=== PATIENT | male | born 1955 | race Hispanic/Latino ===

== ENCOUNTER 2018-10-07 13:27 | Outpatient (CLI) | payer MEDICARE ==
[2018-10-07 14:05] LABS: Hematocrit 31.6 % (35.5-45.6); Hemoglobin 10.4 gm/dl (11.8-15.2); Mean Corpuscular HGB Conc 33 % (32-34); Mean Corpuscular Volume 100 fl (84-94); Platelet Count 144 K/mm3 (140-440); Red Blood Count 3.15 M/mm3 (3.65-5.03)
[2018-10-07 14:38] LABS: Albumin 3.6 g/dL (3.9-5); Calcium 10.4 mg/dL (8.4-10.2)
== END 2018-10-07 13:28 | disposition home or self-care (01) ==
LOC: LAB 13:27
PROVIDERS: ATTEND Internal Medicine
DX: N18.5 Chronic kidney disease, stage 5 (principal); R53.83 Other fatigue
CPT/HCPCS: 36415; 80053; 83970; 84100; 84443; 85027

== ENCOUNTER 2018-12-30 18:03 | Outpatient (CLI) | payer MEDICARE ==
[2018-12-30 18:47] LABS: Basophils # (Auto) 0.1 K/mm3 (0.0-0.1); Basophils % (Auto) 1.5 % (0.0-1.8); Eosinophils # (Auto) 0.3 K/mm3 (0.0-0.4); Eosinophils % (Auto) 3.3 % (0.0-4.3); Hematocrit 30.2 % (35.5-45.6); Hemoglobin 10.5 gm/dl (11.8-15.2); Lymphocytes # (Auto) 2.5 K/mm3 (1.2-5.4); Lymphocytes % (Auto) 30.8 % (13.4-35.0); Mean Corpuscular HGB Conc 35 % (32-34); Mean Corpuscular Volume 97 fl (84-94); Monocytes # (Auto) 0.5 K/mm3 (0.0-0.8); Monocytes % (Auto) 5.9 % (0.0-7.3); Platelet Count 142 K/mm3 (140-440); Red Blood Count 3.13 M/mm3 (3.65-5.03); Red Cell Distribution Width 15.1 % (13.2-15.2)
[2018-12-30 19:05] LABS: Albumin 3.5 g/dL (3.9-5); Calcium 10.5 mg/dL (8.4-10.2)
[2018-12-30 19:08] LABS: Creatinine,Urine 69.5 mg/dL (0.1-20.0); Microalbumin/Creatinine Ratio 234.5 ug/mg
[2018-12-30 19:39] LABS: Bilirubin,Urine NEG (Negative); Blood,Urine NEG (Negative); Color,Urine Yellow (Yellow); Urobilinogen,Urine < 2.0 mg/dL (<2.0)
== END 2018-12-30 18:04 | disposition home or self-care (01) ==
LOC: LAB 18:03
PROVIDERS: ATTEND Internal Medicine Nephrology
DX: I12.0 Hypertensive chronic kidney disease with stage 5 chronic kidney disease or end stage renal disease (principal); N18.5 Chronic kidney disease, stage 5; N25.81 Secondary hyperparathyroidism of renal origin; D63.1 Anemia in chronic kidney disease; E83.52 Hypercalcemia; Z72.0 Tobacco use
CPT/HCPCS: 36415; 80048; 81001; 82040; 82043; 84100; 85025

== ENCOUNTER 2019-10-02 12:05 | Inpatient (IN) | payer MEDICARE ==
[2019-10-02] MEDS ORDERED: SODIUM CHLORIDE 0.9% 1000 ML 500 ML IV ONE (12:22)
[2019-10-02] MEDS ORDERED: ACETAMINOPHEN 325 MG TAB PO ONE (12:22)
[2019-10-02] MEDS ORDERED: GELATIN SPONGE SIZE 100 TP ONE (12:46)
[2019-10-02 13:26] LABS: Basophils # (Auto) 0.1 K/mm3 (0.0-0.1); Basophils % (Auto) 0.5 % (0.0-1.8); Eosinophils # (Auto) 0.3 K/mm3 (0.0-0.4); Eosinophils % (Auto) 3.2 % (0.0-4.3); Hematocrit 23.2 % (35.5-45.6); Hemoglobin 7.4 gm/dl (11.8-15.2); Lymphocytes # (Auto) 2.2 K/mm3 (1.2-5.4); Lymphocytes % (Auto) 21.4 % (13.4-35.0); Mean Corpuscular HGB Conc 32 % (32-34); Mean Corpuscular Volume 92 fl (84-94); Monocytes # (Auto) 0.6 K/mm3 (0.0-0.8); Monocytes % (Auto) 5.3 % (0.0-7.3); Platelet Count 231 K/mm3 (140-440); Red Blood Count 2.53 M/mm3 (3.65-5.03); Red Cell Distribution Width 16.9 % (13.2-15.2)
--- NOTE | 2019-10-02 13:35 | XRay Report ---
Left tibia and fibula, 2 views INDICATION: Postop bleeding FINDINGS: The lower calf shows large amount of surrounding gauze material. The underlying tibia and f ibula are intact however with no fracture or periosteal reaction. There is moderately extensive vascu lar calcification. Signer Name: Jorge Gardner MD Signed: 10/02/2019 1:31 PM Workstation Name: [id number]
[2019-10-02 13:36] LABS: INR 1.28 (0.87-1.13)
[2019-10-02 13:37] LABS: Partial Thromboplastin Time 32.8 Sec. (24.2-36.6)
--- NOTE | 2019-10-02 13:38 | XRay Report ---
LEFT ANKLE 3 VIEW(S) INDICATION / CLINICAL INFORMATION: Pain. Recent vascular surgery. COMPARISON: None available. FINDINGS: Left ankle is wrapped in gauze which obscures some fine detail. BONES / JOINT(S): On the lateral view, there is apparent dislocation of the 5th metatarsal relative t o the cuboid at the tarsometatarsal joint. Dedicated left foot radiographs or left foot CT recommende d. Is no definite fracture is seen. Patient appears subjectively osteopenic. SOFT TISSUES: Obscured by overlying gauze. ADDITIONAL FINDINGS: None. IMPRESSION: 1. Possible dislocation of the 5th tarsometatarsal joint. Dedicated foot radiographs or left foot CT recommended. Signer Name: Bobby Gómez MD Signed: 10/02/2019 1:33 PM Workstation Name: [id number]
[2019-10-02 13:46] LABS: Calcium 10.2 mg/dL (8.4-10.2)
[2019-10-02] MEDS ORDERED: SODIUM CHLORIDE IRRI 500 ML 500 ML IR ONE (14:46)
--- NOTE | 2019-10-02 15:10 | Emergency Department Report ---
ED General Adult HPI - General Chief complaint: Wound/Laceration Stated complaint: L LEG PAIN Time Seen by Provider: 10/02/19 12:21 Source: patient, EMS Mode of arrival: Stretcher Limitations: Physical Limitation - History of Present Illness Initial comments: Patient reports wound on left LE for approximately 6 months. Reports that today the wound nurse at his home removed some gauze that was attached to a scab, and resulted in bleeding at home. EMS reports large amount of bleeding at the home. Severity scale (0 -10): 10 - Related Data Allergies Allergy/AdvReac Type Severity Reaction Status Date / Time albuterol [From Ventolin HFA] Allergy Swelling Verified 10/02/19 12:39 amlodipine [From Norvasc] Allergy Swelling Verified 10/02/19 12:42 captopril Allergy Swelling Verified 10/02/19 12:38 carvedilol Allergy Unknown Verified 10/02/19 12:58 ceftriaxone [From Rocephin] Allergy Rash Verified 10/02/19 12:43 cephalexin Allergy Rash Verified 10/02/19 12:58 clindamycin Allergy Anaphylaxis Verified 10/02/19 12:55 fentanyl Allergy Unknown Verified 10/02/19 12:55 guaifenesin Allergy Swelling Verified 10/02/19 12:41 hydralazine Allergy Swelling Verified 10/02/19 12:42 Iodinated Contrast Media Allergy Unknown Verified 10/02/19 12:49 latex Allergy Unknown Verified 10/02/19 12:48 levofloxacin Allergy Rash Verified 10/02/19 12:44 lidocaine Allergy Swelling Verified 10/02/19 12:38 nebivolol [From Bystolic] Allergy Swelling Verified 10/02/19 12:43 nifedipine Allergy Swelling Verified 10/02/19 12:48 [From Nifedical XL] nitrofurantoin Allergy Unknown Verified 10/02/19 12:48 pseudoephedrine Allergy Unknown Verified 10/02/19 12:41 Sulfa (Sulfonamide Allergy Unknown Verified 10/02/19 12:58 Antibiotics) trimethoprim Allergy Unknown Verified 10/02/19 12:58 Anesthetics - Amide Type AdvReac Nausea Verified 10/02/19 12:55 hydromorphone [From Dilaudid] AdvReac Unknown Verified 10/02/19 12:55 midazolam [From Versed] AdvReac Unknown Verified 10/02/19 12:55 propofol AdvReac Unknown Verified 10/02/19 12:55 ED Review of Systems ROS: Stated complaint: L LEG PAIN Other details as noted in HPI Other: GENERAL: No weight change, fatigue, fever, chills, or night sweats SKIN: LLE wound bleeding HEAD: No trauma EYES: No blurriness, tearing, itching, acute visual loss, conjunctival discoloration, or scleral icterus EARS: No hearing loss, tinnitus, vertigo, or earache NOSE: No rhinorrhea, stuffiness, sneezing, itching, or epistaxis MOUTH: No bleeding gums, hoarseness, sore throat, or swelling CARDIAC: No new murmur, chest pain, palpitations, dyspnea on exertion, orthopnea, PND, or edema RESPIRATORY: No shortness of breath, wheeze, cough, sputum production, hemoptysis GI: No abdominal pain, nausea, vomiting, dysphagia, diarrhea, constipation, hematemesis, melena, hematochezia URINARY: No frequency, urgency, polyuria, dysuria, hematuria, or incontinence MUSCULOSKELETAL: No muscle weakness, joint stiffness, decrease in range of motion, redness, swelling NEUROLOGIC: Dizziness. No headache, syncope, loss of sensation, numbness, tingling, tremors, weakness, paralysis, seizures HEMATOLOGIC: No anemia, easy bruising, bleeding, petechiae, or purpura ENDOCRINE: No hot or cold intolerance, sweating, polyuria, polydipsia or, polyphagia no thyroid problems PSYCHIATRIC: No change in mood, no anxiety, no depression ED Past Medical Hx - Past Medical History Previous Medical History?: Yes Hx Hypertension: Yes Hx Renal Disease: Yes (formerly on dialysis, left arm graft) Hx COPD: Yes - Surgical History Past Surgical History?: Yes Additional Surgical History: prostate, uretal stents - Social History Smoking Status: Former Smoker Substance Use Type: Alcohol ED Physical Exam - General Limitations: Physical Limitation - Other Other exam information: GENERAL: Patient in mild acute distress HEAD: Normocephalic, atraumatic EYES: PERRLA, EOM intact, no scleral icterus, no conjunctival hemorrhage, visual king and acuity wnl NOSE: No tenderness, discharge, sinus tenderness MOUTH: No erythema, bleeding, exudate HEART: Tachycardia, no murmur, S1-S2 are auscultated, no edema, pulses are symmetric LUNGS: No respiratory distress. Bilateral breath sounds, No tachypnea, No retractions, No wheezing, rales, rhonchi ABDOMEN: Normal bowel sounds, abdomen soft, no tenderness, no rebound, no guarding, no distention, no masses, no CVA tenderness MUSCULOSKELETAL: Normal joint range of motion, no redness, no swelling, no tenderness NEUROLOGIC: GCS 15, Alert and Oriented x3, Cranial nerves intact, normal sensation, normal strength, no cerebellar deficit, NIHSS 0 SKIN: Skin is warm and dry, LLE wound explored and without any active bleeding. Superficial wounds around LLE and dorsal left foot. No pustulous drainage. Pale skin. ED Course Vital Signs 10/02/19 10/02/19 10/02/19 13:17 14:00 15:00 Temperature 97.7 F Pulse Rate 104 H 103 H 106 H Respiratory 12 15 15 Rate Blood Pressure 102/62 109/72 123/69 [Right] O2 Sat by Pulse 100 100 100 Oximetry 10/02/19 10/02/19 10/02/19 16:09 18:38 19:20 Temperature 98.2 F Pulse Rate 104 H 104 H 90 Respiratory 15 15 18 Rate Blood Pressure 112/69 112/69 131/69 [Right] O2 Sat by Pulse 100 100 100 Oximetry ED Medical Decision Making - Lab Data Result diagrams: 10/02/19 15:07 10/02/19 12:47 Laboratory Results - last 24 hr 10/02/19 10/02/19 10/02/19 12:47 12:47 12:47 WBC 10.5 RBC 2.53 L Hgb 7.4 L Hct 23.2 L MCV 92 MCH 29 MCHC 32 RDW 16.9 H Plt Count 231 Lymph % (Auto) 21.4 [place] % (Auto) 5.3 Eos % (Auto) 3.2 Baso % (Auto) 0.5 Lymph # 2.2 [place] # 0.6 Eos # 0.3 Baso # 0.1 Seg Neutrophils % 69.6 Seg Neutrophils # 7.3 PT 16.2 H INR 1.28 H APTT 32.8 Sodium 138 Potassium 3.8 Chloride 110.2 H Carbon Dioxide 12 L Anion Gap 20 BUN 52 H Creatinine 4.6 H Estimated GFR 13 BUN/Creatinine Ratio 11 Glucose 139 H Calcium 10.2 - Radiology Data Radiology results: report reviewed - Medical Decision Making At 1507 wound explored without any active bleeding. Superficial skin tears without any laceration visualized. Xray evaluated. Patient clinically without deformity or signs of dislocation. Plan repeat H&H, and if stable, discharge with outpatient follow up. Dr. Vitale updated and agrees to follow up repeat H&H. If Hgb trending downwards plan admit for further evaluation. Repeat Hgb resulted. Trending downward. EMS reports large amount of blood on scene at the home. Plan admit for symptomatic anemia. Trend hgb and evaluate for transfusion. Hospitalist updated and accepts admission. Critical care attestation.: If time is entered above; I have spent that time in minutes in the direct care of this critically ill patient, excluding procedure time. ED Disposition Clinical Impression: Anemia, Bleeding from wound Disposition: [id number] OP ADMIT IP TO THIS HOSP Is pt being admited?: Yes Condition: Stable
[2019-10-02] MEDS ORDERED: HYDROcodone/ACETAMINOPHEN 10-325MG TAB PO ONE (15:15)
[2019-10-02 15:18] LABS: Hematocrit 21.5 % (35.5-45.6)
--- NOTE | 2019-10-02 15:43 | History and Physical Report ---
History of Present Illness Date of examination: 10/02/19 Date of admission: 10/12/19 Chief complaint: bleeding from LLE wound History of present illness: 64 y/o male with h/o HTN, PVD with left leg chronic ulcer for 6 months, CKD recommended HD but refused in the past presented to the hospital with c/o bleeding from his left LE wound. Reports that today the wound nurse at his home removed some gauze that was attached to a scab, and resulted in large amount of bleeding at home. EMS was called and reports large amount of bleeding at the home. He was dressed in the Er and bleeding seems to be stopped now. His Hb 7.0 today which has dropped from prior(Hb 9.8). patient c/o dizziness and generalized weakness. He will be admitted for further evaluation and Mx. Past History Past Medical History: hypertension, hyperlipidemia, PVD, other (CKD has left arm AV graft) Past Surgical History: Other (prostate, uretal stents) Social history: alcohol abuse, other (former smoker) Family history: hypertension Medications and Allergies Allergies Allergy/AdvReac Type Severity Reaction Status Date / Time albuterol [From Ventolin HFA] Allergy Swelling Verified 10/02/19 12:39 amlodipine [From Norvasc] Allergy Swelling Verified 10/02/19 12:42 captopril Allergy Swelling Verified 10/02/19 12:38 carvedilol Allergy Unknown Verified 10/02/19 12:58 ceftriaxone [From Rocephin] Allergy Rash Verified 10/02/19 12:43 cephalexin Allergy Rash Verified 10/02/19 12:58 clindamycin Allergy Anaphylaxis Verified 10/02/19 12:55 fentanyl Allergy Unknown Verified 10/02/19 12:55 guaifenesin Allergy Swelling Verified 10/02/19 12:41 hydralazine Allergy Swelling Verified 10/02/19 12:42 Iodinated Contrast Media Allergy Unknown Verified 10/02/19 12:49 latex Allergy Unknown Verified 10/02/19 12:48 levofloxacin Allergy Rash Verified 10/02/19 12:44 lidocaine Allergy Swelling Verified 10/02/19 12:38 nebivolol [From Bystolic] Allergy Swelling Verified 10/02/19 12:43 nifedipine Allergy Swelling Verified 10/02/19 12:48 [From Nifedical XL] nitrofurantoin Allergy Unknown Verified 10/02/19 12:48 pseudoephedrine Allergy Unknown Verified 10/02/19 12:41 Sulfa (Sulfonamide Allergy Unknown Verified 10/02/19 12:58 Antibiotics) trimethoprim Allergy Unknown Verified 10/02/19 12:58 Anesthetics - Amide Type AdvReac Nausea Verified 10/02/19 12:55 hydromorphone [From Dilaudid] AdvReac Unknown Verified 10/02/19 12:55 midazolam [From Versed] AdvReac Unknown Verified 10/02/19 12:55 propofol AdvReac Unknown Verified 10/02/19 12:55 Home Medications Medication Instructions Recorded Confirmed Last Taken Type Dutasteride 0.5 mg PO QDAY 10/03/19 10/03/19 Unknown History Flovent 220 MCG/PUFF HFA 220 mcg INHALATION QDAY 10/03/19 10/03/19 Unknown History Fluticasone [Flonase] 50 mcg INTRANASAL QDAY 10/03/19 10/03/19 Unknown History Furosemide [Lasix TAB] 40 mg PO DAILY PRN 10/03/19 10/03/19 Unknown History HYDROcodone/APAP 10-325 [[place] 10 mg PO Q6HR PRN 10/03/19 10/03/19 Unknown History 10-325 mg TAB] Ipratropium (Nf) [Atrovent HFA 17 mcg INHALATION Q6HR 10/03/19 10/03/19 Unknown History 17MCG/PUFF] Ipratropium (Nf) [Atrovent HFA 200 mg INHALATION QID PRN 10/03/19 10/03/19 Unknown History 17MCG/PUFF] LORazepam [Lorazepam] 1 mg PO Q12HR PRN 10/03/19 10/03/19 Unknown History Loratadine 10 mg PO QDAY 10/03/19 10/03/19 Unknown History Metoprolol [Lopressor TAB] 50 mg PO TID 10/03/19 10/03/19 Unknown History Nicotine [Habitrol] 21 mg TD DAILY 10/03/19 10/03/19 Unknown History Ondansetron (Nf) [Zofran TAB] 8 mg PO PRN PRN 10/03/19 10/03/19 Unknown History Pantoprazole [Protonix TAB] 20 mg PO QDAY 10/03/19 10/03/19 Unknown History Pentoxifylline 400 mg PO BID 10/03/19 10/03/19 Unknown History Wendie-Emilia Rx Tablet 1 tab PO QDAY 10/03/19 10/03/19 Unknown History Terazosin HCl 10 mg PO QHS 10/03/19 10/03/19 Unknown History Tiotropium [place] [Spiriva] 18 mcg INHALATION QDAY 10/03/19 10/03/19 Unknown History cloNIDine [Catapres] 0.2 mg PO TID 10/03/19 10/03/19 Unknown History hydrOXYzine HCL [Atarax] 10 mg PO BID PRN 10/03/19 10/03/19 Unknown History Dutasteride 0.5 mg PO DAILY 10/04/19 10/04/19 Unknown History Exam - Physical Exam Narrative exam: GENERAL: Patient in mild acute distress HEAD: Normocephalic, atraumatic EYES: PERRLA, EOM intact, no scleral icterus, no conjunctival hemorrhage, visual king and acuity wnl NOSE: No tenderness, discharge, sinus tenderness MOUTH: No erythema, bleeding, exudate HEART: Tachycardia, no murmur, S1-S2 are auscultated, no edema, pulses are symmetric LUNGS: No respiratory distress. Bilateral breath sounds, No tachypnea, No ret ractions, No wheezing, rales, rhonchi ABDOMEN: Normal bowel sounds, abdomen soft, no tenderness, no rebound, no guarding, no distention, no masses, no CVA tenderness MUSCULOSKELETAL: Normal joint range of motion, no redness, no swelling, no tenderness, generalized muscle wasting NEUROLOGIC: GCS 15, Alert and Oriented x3, Cranial nerves intact, normal sensation, normal strength, no cerebellar deficit, NIHSS 0 SKIN: Skin is warm and dry, LLE wound explored and without any active bleeding. Superficial wounds around LLE and dorsal left foot. No pustulous drainage. Pale skin. - Constitutional Vitals: Temp Pulse Resp BP Pulse Ox 97.7 F 104 H 12 102/62 100 10/02/19 13:17 10/02/19 13:17 10/02/19 13:17 10/02/19 13:17 10/02/19 13:17 Results - Labs CBC & Chem 7: 10/03/19 15:40 10/05/19 09:22 Labs: Abnormal lab results 10/02/19 10/02/19 10/02/19 Range/Units 12:47 12:47 12:47 RBC 2.53 L (3.65-5.03) M/mm3 Hgb 7.4 L (11.8-15.2) gm/dl Hct 23.2 L (35.5-45.6) % RDW 16.9 H (13.2-15.2) % PT 16.2 H (12.2-14.9) Sec. INR 1.28 H (0.87-1.13) Chloride 110.2 H (98-107) mmol/L Carbon Dioxide 12 L (22-30) mmol/L BUN 52 H (9-20) mg/dL Creatinine 4.6 H (0.8-1.5) mg/dL Glucose 139 H (75-100) mg/dL 10/02/19 Range/Units 15:07 RBC (3.65-5.03) M/mm3 Hgb 7.0 L (11.8-15.2) gm/dl Hct 21.5 L (35.5-45.6) % RDW (13.2-15.2) % PT (12.2-14.9) Sec. INR (0.87-1.13) Chloride (98-107) mmol/L Carbon Dioxide (22-30) mmol/L BUN (9-20) mg/dL Creatinine (0.8-1.5) mg/dL Glucose (75-100) mg/dL Assessment and Plan Acute blood loss anemia from LE wound LLE chronic ulcer COPD on home O2 Chronic respiratory failure with home o2 PVD s/p stent placement CKD stage 4/5 - cr appears stable HTN, stable Anxiety Severe PCM - admit for observation - monitor h/H, transfuse one unit - monitor BMP, gentle hydration - resume home meds, wound care consult - nephrology consult, monitor renal function - nutrition consult - scd fro DVt Px
[2019-10-02] MEDS ORDERED: SODIUM CHLORIDE 0.9% 500 ML 500 ML IV ONE (15:44)
[2019-10-02] MEDS ORDERED: SODIUM CHLORIDE 0.9% 1000 ML 1,000 ML IV SCH (15:45)
[2019-10-02] MEDS: MORPHINE 2 MG/1 ML INJ IV PRN (21:29)
[2019-10-03] MEDS: ALPRAZolam 0.5 MG TAB PO PRN ×2 (02:58→13:39)
[2019-10-03] MEDS: MORPHINE 2 MG/1 ML INJ IV PRN (05:58)
[2019-10-03] MEDS ORDERED: SODIUM CHLORIDE 0.9% 500 ML 500 ML ONE (09:00)
--- NOTE | 2019-10-03 10:45 | Consultation ---
History of Present Illness - History of Present Illness Thank you for the consultation ! My assessment and plan are as follows: Advance renal failure in a patient who has decided not to go on dialysis even though he has been advised to consider dialysis many years ago, over time his health has markedly declined in terms of loss of muscle mass generalized weakness, patient has chosen not to go on dialysis and at this point should be treated medically, Metabolic acidosis continue to monitor replace bicarbonate Overall prognosis guarded to poor Has history of obstructive uropathy and must follow up with urology in outpatient setting He'll be prone to complications related to renal failure Patient has been adequately counseled and educated regarding all the renal related issues and renal care plan was discussed with patient at length Patient was advised to make an appointment upon discharge, for follow-up in the office Renal prognosis remains guarded at this time We'll continue to follow and make recommendation from renal standpoint If you have any questions please feel free to contact me at [phone] Ru Roberson M.D. [facility], [address] [place] [address]. [place] [address] History of presenting illness 64-year-old male who has been established in our clinic for his renal failure, patient has been admitted here with the left lower extremity wound, he has also had bleeding from the bone side, Patient has advanced renal failure but has refused dialysis on multiple occasions in the past and has chosen not to go on dialysis Past medical history significant for Chronic kidney disease COPD Acidosis Obstructive uropathy And many others reviewed from the chart Current allergies: Multiple reviewed from the chart Social history, family history: Reviewed from the chart Review of system positive for left lower extremity wound, progressive decline in health generalized weakness bleeding from the wound site, all other review of system negative Physical examination: General: No acute distress HEENT: Oral mucosa moist no icterus, no facial swelling Neck: Supple no thyromegaly no lymphadenopathy no JVD Chest: Clear to auscultation no crackles rales or wheezes Heart: Regular rate and rhythm S1-S2 heard no S3-S4 Abdomen: Soft nontender no organomegaly no masses palpable no renal bruit no suprapubic masses no CVA tenderness Dermatology: No petechial skin rashes noted Extremity: Less than 1+ peripheral edema, dry skin , has wound in the left lower extremity Musculoskeletal: No joint effusion noted in knee and ankle area Psych: No evidence of agitation and aggression noted Neurological: Alert awake follows commands no tremors no myoclonus Back: No CVA tenderness Medications and Allergies Allergies Allergy/AdvReac Type Severity Reaction Status Date / Time albuterol [From Ventolin HFA] Allergy Swelling Verified 10/02/19 12:39 amlodipine [From Norvasc] Allergy Swelling Verified 10/02/19 12:42 captopril Allergy Swelling Verified 10/02/19 12:38 carvedilol Allergy Unknown Verified 10/02/19 12:58 ceftriaxone [From Rocephin] Allergy Rash Verified 10/02/19 12:43 cephalexin Allergy Rash Verified 10/02/19 12:58 clindamycin Allergy Anaphylaxis Verified 10/02/19 12:55 fentanyl Allergy Unknown Verified 10/02/19 12:55 guaifenesin Allergy Swelling Verified 10/02/19 12:41 hydralazine Allergy Swelling Verified 10/02/19 12:42 Iodinated Contrast Media Allergy Unknown Verified 10/02/19 12:49 latex Allergy Unknown Verified 10/02/19 12:48 levofloxacin Allergy Rash Verified 10/02/19 12:44 lidocaine Allergy Swelling Verified 10/02/19 12:38 nebivolol [From Bystolic] Allergy Swelling Verified 10/02/19 12:43 nifedipine Allergy Swelling Verified 10/02/19 12:48 [From Nifedical XL] nitrofurantoin Allergy Unknown Verified 10/02/19 12:48 pseudoephedrine Allergy Unknown Verified 10/02/19 12:41 Sulfa (Sulfonamide Allergy Unknown Verified 10/02/19 12:58 Antibiotics) trimethoprim Allergy Unknown Verified 10/02/19 12:58 Anesthetics - Amide Type AdvReac Nausea Verified 10/02/19 12:55 hydromorphone [From Dilaudid] AdvReac Unknown Verified 10/02/19 12:55 midazolam [From Versed] AdvReac Unknown Verified 10/02/19 12:55 propofol AdvReac Unknown Verified 10/02/19 12:55 Active Meds: Active Medications Alprazolam (Xanax) 0.5 mg PO Q8H PRN PRN Reason: Anxiety Last Admin: 10/03/19 02:58 Dose: 0.5 mg Documented by: Sodium Chloride (Nacl 0.9% 1000 Ml) 1,000 mls @ 100 mls/hr IV DIRECT MITZY Last Admin: 10/02/19 21:29 Dose: 100 mls/hr Documented by: Morphine Sulfate (Morphine) 2 mg IV Q4H PRN PRN Reason: Pain, Moderate (4-6) Last Admin: 10/03/19 05:58 Dose: 2 mg Documented by: Exam - Vital Signs Vital signs: Vital Signs Temp Pulse Resp BP Pulse Ox 97.7 F 104 H 12 102/62 100 10/02/19 13:17 10/02/19 13:17 10/02/19 13:17 10/02/19 13:17 10/02/19 13:17 Results - Lab Results 10/02/19 15:07 10/02/19 12:47 Most recent lab results Calcium 10.2 mg/dL (8.4-10.2) 10/02/19 12:47
[2019-10-03] MEDS ORDERED: NON-FORMULARY EACH (Ondansetron (Nf) 8 MG) PO PRN (15:49)
[2019-10-03 16:03] LABS: Hematocrit 24.1 % (35.5-45.6); Hemoglobin 7.9 gm/dl (11.8-15.2); Mean Corpuscular HGB Conc 33 % (32-34); Mean Corpuscular Volume 90 fl (84-94); Platelet Count 224 K/mm3 (140-440); Red Blood Count 2.68 M/mm3 (3.65-5.03); Red Cell Distribution Width 15.8 % (13.2-15.2)
[2019-10-03] MEDS ORDERED: ONDANSETRON 8 MG ODT TAB PO PRN (16:15)
[2019-10-03 16:23] LABS: Calcium 9.9 mg/dL (8.4-10.2)
[2019-10-03] MEDS: HYDROcodone/ACETAMINOPHEN 5-325 MG TAB PO PRN ×2 (17:25→21:08)
[2019-10-03] MEDS: hydrOXYzine HCL 10 MG TAB PO PRN (19:01)
[2019-10-03] MEDS: NICOTINE 21 MG/24 HR PATCH TD SCH (19:01)
[2019-10-03] MEDS: cloNIDine 0.2 MG TAB PO SCH (21:06)
[2019-10-03] MEDS: METOPROLOL TARTRATE 50 MG TAB PO SCH (21:07)
[2019-10-03] MEDS: PENTOXIFYLLINE ER 400 MG TAB PO SCH (21:09)
[2019-10-03] MEDS: ONDANSETRON 4 MG ODT TAB PO PRN (21:10)
[2019-10-03] MEDS: PRAZOSIN 5 MG CAP PO SCH (21:11)
[2019-10-03] MEDS: BUDESONIDE 0.5 MG/2 ML NEBU IH SCH (21:37)
[2019-10-03] MEDS ORDERED: TERAZOSIN HCL 10 MG PO SCH (22:00)
[2019-10-04] MEDS: HYDROcodone/ACETAMINOPHEN 5-325 MG TAB PO PRN ×3 (04:02→22:25)
[2019-10-04] MEDS: ONDANSETRON 4 MG ODT TAB PO PRN (04:02)
[2019-10-04] MEDS: hydrOXYzine HCL 10 MG TAB PO PRN ×2 (04:19→18:23)
[2019-10-04] MEDS: TIOTROPIUM 18 MCG CAP INHALATION IH SCH ×2 (08:30→09:19)
[2019-10-04] MEDS: BUDESONIDE 0.5 MG/2 ML NEBU IH SCH ×2 (08:35→23:05)
[2019-10-04] MEDS ORDERED: LORATADINE 10 MG PO SCH (10:00)
[2019-10-04] MEDS ORDERED: FLOVENT INHALATION SCH (10:00)
[2019-10-04] MEDS ORDERED: NON-FORMULARY EACH (Rena-Vite Rx Tablet 1 TAB) PO SCH (10:00)
[2019-10-04] MEDS: cloNIDine 0.2 MG TAB PO SCH ×3 (10:27→22:17)
--- NOTE | 2019-10-04 10:27 | Progress Note ---
Subjective Interval history: RUKHSANA /CKd better Start bicarb drip Anemia complicated by clood loss Not interested in dialsyis Chronic non complaince Will follow Objective - Vital Signs Vital signs: Vital Signs - 12hr 10/03/19 10/04/19 10/04/19 23:42 06:24 08:30 Temperature 97.7 F 97.7 F Pulse Rate 62 55 L Pulse Rate [ 63 Posterior Bilateral Throughout] Respiratory 16 16 Rate Respiratory 16 Rate [Posterior Bilateral Throughout] Blood Pressure 113/62 99/55 O2 Sat by Pulse 99 99 Oximetry 10/04/19 08:37 Temperature Pulse Rate Pulse Rate [ 65 Posterior Bilateral Throughout] Respiratory Rate Respiratory 18 Rate [Posterior Bilateral Throughout] Blood Pressure O2 Sat by Pulse Oximetry - Lab 10/03/19 15:40 10/03/19 15:40 Most recent lab results Calcium 9.9 mg/dL (8.4-10.2) 10/03/19 15:40 Medications & Allergies - Medications Allergies/Adverse Reactions: Allergies albuterol [From Ventolin HFA] Allergy (Verified 10/02/19 12:39) Swelling amlodipine [From Norvasc] Allergy (Verified 10/02/19 12:42) Swelling captopril Allergy (Verified 10/02/19 12:38) Swelling carvedilol Allergy (Verified 10/02/19 12:58) Unknown ceftriaxone [From Rocephin] Allergy (Verified 10/02/19 12:43) Rash cephalexin Allergy (Verified 10/02/19 12:58) Rash clindamycin Allergy (Verified 10/02/19 12:55) Anaphylaxis fentanyl Allergy (Verified 10/02/19 12:55) Unknown guaifenesin Allergy (Verified 10/02/19 12:41) Swelling hydralazine Allergy (Verified 10/02/19 12:42) Swelling Iodinated Contrast Media Allergy (Verified 10/02/19 12:49) Unknown latex Allergy (Verified 10/02/19 12:48) Unknown levofloxacin Allergy (Verified 10/02/19 12:44) Rash lidocaine Allergy (Verified 10/02/19 12:38) Swelling nebivolol [From Bystolic] Allergy (Verified 10/02/19 12:43) Swelling nifedipine [From Nifedical XL] Allergy (Verified 10/02/19 12:48) Swelling nitrofurantoin Allergy (Verified 10/02/19 12:48) Unknown pseudoephedrine Allergy (Verified 10/02/19 12:41) Unknown Sulfa (Sulfonamide Antibiotics) Allergy (Verified 10/02/19 12:58) Unknown trimethoprim Allergy (Verified 10/02/19 12:58) Unknown Anesthetics - Amide Type Adverse Reaction (Verified 10/02/19 12:55) Nausea hydromorphone [From Dilaudid] Adverse Reaction (Verified 10/02/19 12:55) Unknown midazolam [From Versed] Adverse Reaction (Verified 10/02/19 12:55) Unknown propofol Adverse Reaction (Verified 10/02/19 12:55) Unknown Home Medications: Home Medications Medication Instructions Recorded Confirmed Last Taken Type Dutasteride 0.5 mg PO QDAY 10/03/19 10/03/19 Unknown History Flovent 220 MCG/PUFF HFA 220 mcg INHALATION QDAY 10/03/19 10/03/19 Unknown Histo ry Fluticasone [Flonase] 50 mcg INTRANASAL QDAY 10/03/19 10/03/19 Unknown History Furosemide [Lasix TAB] 40 mg PO DAILY PRN 10/03/19 10/03/19 Unknown History HYDROcodone/APAP 10-325 [[place] 10 mg PO Q6HR PRN 10/03/19 10/03/19 Unknown History 10-325 mg TAB] Ipratropium (Nf) [Atrovent HFA 17 mcg INHALATION Q6HR 10/03/19 10/03/19 Unknown History 17MCG/PUFF] Ipratropium (Nf) [Atrovent HFA 200 mg INHALATION QID PRN 10/03/19 10/03/19 Unknown History 17MCG/PUFF] LORazepam [Lorazepam] 1 mg PO Q12HR PRN 10/03/19 10/03/19 Unknown History Loratadine 10 mg PO QDAY 10/03/19 10/03/19 Unknown History Metoprolol [Lopressor TAB] 50 mg PO TID 10/03/19 10/03/19 Unknown History Nicotine [Habitrol] 21 mg TD DAILY 10/03/19 10/03/19 Unknown History Ondansetron (Nf) [Zofran TAB] 8 mg PO PRN PRN 10/03/19 10/03/19 Unknown History Pantoprazole [Protonix TAB] 20 mg PO QDAY 10/03/19 10/03/19 Unknown History Pentoxifylline 400 mg PO BID 10/03/19 10/03/19 Unknown History Wendie-Emilia Rx Tablet 1 tab PO QDAY 10/03/19 10/03/19 Unknown History Terazosin HCl 10 mg PO QHS 10/03/19 10/03/19 Unknown History Tiotropium [place] [Spiriva] 18 mcg INHALATION QDAY 10/03/19 10/03/19 Unknown History cloNIDine [Catapres] 0.2 mg PO TID 10/03/19 10/03/19 Unknown History hydrOXYzine HCL [Atarax] 10 mg PO BID PRN 10/03/19 10/03/19 Unknown History Active Medications: Generic Name Dose Route Start Last Admin Trade Name Freq PRN Reason Stop Dose Admin Acetaminophen/Hydrocodone Bitart 2 each 10/03/19 16:34 10/04/19 04:02 [place] 5/325 PO 2 each Q6H PRN Administration Pain, Moderate (4-6) Alprazolam 0.5 mg 10/02/19 16:29 10/03/19 13:39 Xanax PO 0.5 mg Q8H PRN Administration Anxiety Budesonide 0.5 mg 10/03/19 20:00 10/04/19 08:35 Pulmicort IH 0.5 mg Q12HRT MITZY Administration Cetirizine HCl 10 mg 10/04/19 10:00 Cetirizine PO DAILY MITZY Clonidine HCl 0.2 mg 10/03/19 20:00 10/03/19 21:06 Catapres PO 0.2 mg TID MITZY Administration Fluticasone Propionate 50 mcg 10/04/19 10:00 Flonase NS QDAY MITZY Hydroxyzine HCl 10 mg 10/03/19 15:49 10/04/19 04:19 Atarax PO 10 mg BID PRN Administration Itching Sodium Chloride 1,000 mls @ 100 mls/hr 10/02/19 15:45 10/02/19 21:29 Nacl 0.9% 1000 Ml IV 100 mls/hr DIRECT MITZY Administration Sodium Bicarbonate 100 meq/ 1,100 mls @ 60 mls/hr 10/04/19 11:00 Sterile Water IV DIRECT MITZY Lorazepam 1 mg 10/03/19 15:49 Ativan PO Q12HR PRN Anxiety Metoprolol Tartrate 50 mg 10/03/19 20:00 10/03/19 21:07 Metoprolol PO 50 mg TID [facility] Administration Miscellaneous Medication 0.5 mg 10/04/19 10:00 Dutasteride [Dutasteride] PO QDAY [facility] Multivit/Ca Carb/B Cmplx/FA/Prenat 1 cap 10/04/19 10:00 Renal Caps PO QDAY [facility] Nicotine 21 mg 10/03/19 19:00 10/03/19 19:01 Habitrol TD 21 mg DAILY [facility] Administration Ondansetron HCl 8 mg 10/03/19 19:25 10/04/19 04:02 Zofran Odt PO 8 mg Q6H PRN Administration Nausea And Vomiting Pantoprazole Sodium 20 mg 10/04/19 10:00 Protonix PO QDAY [facility] Pentoxifylline 400 mg 10/03/19 22:00 10/03/19 21:09 Trental PO 400 mg BID MITZY Administration Prazosin HCl 5 mg 10/03/19 22:00 10/03/19 21:11 Prazosin PO 5 mg QHS [facility] Administration Tiotropium [place] 1 puff 10/04/19 10:00 10/04/19 09:19 Spiriva IH Not Given QDAY [facility]
[2019-10-04] MEDS: METOPROLOL TARTRATE 50 MG TAB PO SCH (10:28)
[2019-10-04] MEDS ORDERED: SODIUM BICARBONATE 100 MEQ in WATER FOR INJECTION (PF) 1,000 ML IV SCH (11:00)
[2019-10-04] MEDS: FLUTICASONE PROPIONATE NASAL SPRAY 16 GM NS SCH (11:02)
[2019-10-04] MEDS: PENTOXIFYLLINE ER 400 MG TAB PO SCH ×2 (11:03→22:17)
[2019-10-04] MEDS: FOLIC ACID/VIT B COMP W-C 1 MG (RENAL CAPS) PO SCH (11:03)
[2019-10-04] MEDS: NICOTINE 21 MG/24 HR PATCH TD SCH (11:03)
[2019-10-04] MEDS: PANTOPRAZOLE 20 MG TAB PO SCH (11:04)
[2019-10-04] MEDS: CETIRIZINE 10 MG TAB PO SCH (11:04)
[2019-10-04] MEDS ORDERED: ALUM-MAG HYDROXIDE-SIMETHICONE 200-200-20MG/5ML ORAL LIQD 30 ML PO PRN (13:19)
--- NOTE | 2019-10-04 13:29 | Progress Note ---
Assessment and Plan Acute blood loss symptomatic anemia from LE wound - - monitor h/H, transfused one unit - Hold any heparin products LLE chronic ulcer - Wound care consult, we will follow recommendation COPD on home O2 - We'll continue supplemental O2 and nebs as needed Chronic respiratory failure with home o2 - Due to COPD, continue supportive care and supplemental O2 PVD s/p stent placement - Continue antiplatelets and stenting CKD stage 4/5 - Consulted nephrology, continue IV fluid HTN, stable - Continue home meds Anxiety -Xanax as needed Severe PCM - nutrition consult - scd fro DVt Px Disposition: Wait for PT eval and wound care recommendation, possible DC home with home health Subjective Date of service: 10/03/19 Interval history: Patient seen and examined. Medical records and medication list reviewed. No acute event overnight noted by the RN. Patient denies any chest pain or difficulty breathing. Patient is tolerating diet. Has very poor appetite, no further bleeding from the lower extremity wound Received blood transfusion, still complains of dizziness Discussed plan of care at bedside with patient. Objective - Exam Narrative Exam: GENERAL: Patient in no acute distress HEAD: Normocephalic, atraumatic EYES: PERRLA, EOM intact, NOSE: No tenderness, discharge, sinus tenderness MOUTH: No erythema, bleeding, exudate HEART: S1-S2 are auscultated, no edema, LUNGS: No respiratory distress. Bilateral breath sounds, No wheezing, rales, rhonchi ABDOMEN: Normal bowel sounds, abdomen soft, no tenderness, MUSCULOSKELETAL: Normal joint range of motion, generalized muscle wasting NEUROLOGIC: Alert and Oriented x3, normal strength SKIN: Skin is warm and dry, LLE wound with intact dressing - Constitutional Vitals: Vital Signs - 12hr 10/04/19 10/04/19 10/04/19 06:24 08:30 08:37 Temperature 97.7 F Pulse Rate 55 L Pulse Rate [ 63 65 Posterior Bilateral Throughout] Respiratory 16 Rate Respiratory 16 18 Rate [Posterior Bilateral Throughout] Blood Pressure 99/55 O2 Sat by Pulse 99 Oximetry 10/04/19 10/04/19 10/04/19 10:27 10:28 11:26 Temperature 97.6 F Pulse Rate 55 L 55 L 62 Pulse Rate [ Posterior Bilateral Throughout] Respiratory 18 Rate Respiratory Rate [Posterior Bilateral Throughout] Blood Pressure 99/55 141/76 O2 Sat by Pulse 100 Oximetry - Labs CBC & Chem 7: 10/03/19 15:40 10/05/19 09:22 Labs: Abnormal lab results 10/02/19 10/03/19 10/03/19 Range/Units 15:52 15:40 15:40 RBC 2.68 L (3.65-5.03) M/mm3 Hgb 7.9 L (11.8-15.2) gm/dl Hct 24.1 L (35.5-45.6) % RDW 15.8 H (13.2-15.2) % Sodium 135 L (137-145) mmol/L Chloride 109.8 H (98-107) mmol/L Carbon Dioxide 12 L (22-30) mmol/L BUN 48 H (9-20) mg/dL Creatinine 3.9 H (0.8-1.5) mg/dL Crossmatch See Detail
--- NOTE | 2019-10-04 13:35 | Progress Note ---
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 Medical records and medication list reviewed. No acute event overnight noted by the RN. Patient denies any chest pain or difficulty breathing. Patient is tolerating diet. Has very poor appetite, no further bleeding from the lower extremity wound Discussed plan of care at bedside with patient. Objective - Exam Narrative Exam: GENERAL: Patient in no acute distress HEAD: Normocephalic, atraumatic EYES: PERRLA, EOM intact, NOSE: No tenderness, discharge, sinus tenderness MOUTH: No erythema, bleeding, exudate HEART: S1-S2 are auscultated, no edema, LUNGS: No respiratory distress. Bilateral breath sounds, No wheezing, rales, rhonchi ABDOMEN: Normal bowel sounds, abdomen soft, no tenderness, MUSCULOSKELETAL: Normal joint range of motion, generalized muscle wasting NEUROLOGIC: Alert and Oriented x3, normal strength SKIN: Skin is warm and dry, LLE wound with intact dressing - Constitutional Vitals: Vital Signs - 12hr 10/04/19 10/04/19 10/04/19 06:24 08:30 08:37 Temperature 97.7 F Pulse Rate 55 L Pulse Rate [ 63 65 Posterior Bilateral Throughout] Respiratory 16 Rate Respiratory 16 18 Rate [Posterior Bilateral Throughout] Blood Pressure 99/55 O2 Sat by Pulse 99 Oximetry 10/04/19 10/04/19 10/04/19 10:27 10:28 11:26 Temperature 97.6 F Pulse Rate 55 L 55 L 62 Pulse Rate [ Posterior Bilateral Throughout] Respiratory 18 Rate Respiratory Rate [Posterior Bilateral Throughout] Blood Pressure 99/55 141/76 O2 Sat by Pulse 100 Oximetry - Labs CBC & Chem 7: 10/03/19 15:40 10/05/19 09:22 Labs: Abnormal lab results 10/02/19 10/03/19 10/03/19 Range/Units 15:52 15:40 15:40 RBC 2.68 L (3.65-5.03) M/mm3 Hgb 7.9 L (11.8-15.2) gm/dl Hct 24.1 L (35.5-45.6) % RDW 15.8 H (13.2-15.2) % Sodium 135 L (137-145) mmol/L Chloride 109.8 H (98-107) mmol/L Carbon Dioxide 12 L (22-30) mmol/L BUN 48 H (9-20) mg/dL Creatinine 3.9 H (0.8-1.5) mg/dL Crossmatch See Detail
[2019-10-04] MEDS: LORazepam 1 MG TAB PO PRN (17:34)
[2019-10-04] MEDS: DUTASTERIDE 0.5 MG PO SCH (22:16)
[2019-10-04] MEDS: PRAZOSIN 5 MG CAP PO SCH (22:17)
[2019-10-05] MEDS: BUDESONIDE 0.5 MG/2 ML NEBU IH SCH ×2 (07:46→21:25)
[2019-10-05] MEDS: TIOTROPIUM 18 MCG CAP INHALATION IH SCH ×2 (09:48→11:12)
[2019-10-05 10:17] LABS: Calcium 9.9 mg/dL (8.4-10.2)
[2019-10-05] MEDS: cloNIDine 0.2 MG TAB PO SCH ×3 (10:26→20:51)
[2019-10-05] MEDS: DUTASTERIDE 0.5 MG PO SCH (10:29)
[2019-10-05] MEDS: FOLIC ACID/VIT B COMP W-C 1 MG (RENAL CAPS) PO SCH (10:30)
[2019-10-05] MEDS: PANTOPRAZOLE 20 MG TAB PO SCH (10:30)
[2019-10-05] MEDS: CETIRIZINE 10 MG TAB PO SCH (10:30)
[2019-10-05] MEDS: FLUTICASONE PROPIONATE NASAL SPRAY 16 GM NS SCH (10:30)
[2019-10-05] MEDS: PENTOXIFYLLINE ER 400 MG TAB PO SCH ×2 (10:30→22:59)
[2019-10-05] MEDS ORDERED: SODIUM CHLORIDE 0.9% 100 ML IV PRN (10:30)
[2019-10-05] MEDS: NICOTINE 21 MG/24 HR PATCH TD SCH (10:30)
--- NOTE | 2019-10-05 10:32 | Progress Note ---
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 Personally seen by myself for hyperkalemia in CKD. Renal function has been stable, but is acidotic on bicarb gtt. Previously on HD but stopped due to feeling poorly with HD. Spent >30 minutes today speaking with patient and his POA Wes regarding renal prognosis. Discussed HD needs in regards to azotemia and acidosis in setting of CKD; patient is amenable to "gentle" HD for "cleaning". Given this discussion, will start HD for 2 hours today and assess response. Did offer continued monitoring off HD, but do suspect that he will need HD in near future regardless. - HD today, likely will continue twice weekly for 2 hours with slow blood flows - will need outpatient dialysis placement # Acidosis: on bicarb gtt currently; will stop gtt and plan for HD as above # Left Foot Wound: wound care following, PT/OT # Anemia: may need ESAs with HD, will start with upcoming treatments # HTN: BP reasonable, no UF for now as he is non-oliguric Subjective Date of service: 10/05/19 Interval history: No acute events noted. On bicarb gtt. Continues to feel weak and tired. Objective - Exam Narrative Exam: General: No acute distress, chronically ill appearing HEENT: NC/AT Neck: Supple Chest: Clear to auscultation Heart: Regular rate and rhythm, S1-S2 Abdomen: Soft nontender ss Dermatology: intact Extremity: Less than 1+ peripheral edema, has wound in the left lower extremity Musculoskeletal: No joint effusion noted in knee and ankle area Psych: No evidence of agitation and aggression noted Neurological: Alert awake, no focal deficits Back: No CVA tenderness - Vital Signs Vital signs: Vital Signs - 12hr 10/04/19 10/05/19 10/05/19 23:05 04:22 10:26 Temperature 97.9 F Pulse Rate 67 70 Pulse Rate [ 85 Posterior Bilateral Throughout] Respiratory 20 Rate Respiratory 16 Rate [Posterior Bilateral Throughout] Blood Pressure 111/67 109/69 O2 Sat by Pulse 99 Oximetry - Lab 10/03/19 15:40 10/05/19 09:22 Most recent lab results Calcium 9.9 mg/dL (8.4-10.2) 10/05/19 09:22 Medications & Allergies - Medications Allergies/Adverse Reactions: Allergies albuterol [From Ventolin HFA] Allergy (Verified 10/02/19 12:39) Swelling amlodipine [From Norvasc] Allergy (Verified 10/02/19 12:42) Swelling captopril Allergy (Verified 10/02/19 12:38) Swelling carvedilol Allergy (Verified 10/02/19 12:58) Unknown ceftriaxone [From Rocephin] Allergy (Verified 10/02/19 12:43) Rash cephalexin Allergy (Verified 10/02/19 12:58) Rash clindamycin Allergy (Verified 10/02/19 12:55) Anaphylaxis fentanyl Allergy (Verified 10/02/19 12:55) Unknown guaifenesin Allergy (Verified 10/02/19 12:41) Swelling hydralazine Allergy (Verified 10/02/19 12:42) Swelling Iodinated Contrast Media Allergy (Verified 10/02/19 12:49) Unknown latex Allergy (Verified 10/02/19 12:48) Unknown levofloxacin Allergy (Verified 10/02/19 12:44) Rash lidocaine Allergy (Verified 10/02/19 12:38) Swelling nebivolol [From Bystolic] Allergy (Verified 10/02/19 12:43) Swelling nifedipine [From Nifedical XL] Allergy (Verified 10/02/19 12:48) Swelling nitrofurantoin Allergy (Verified 10/02/19 12:48) Unknown pseudoephedrine Allergy (Verified 10/02/19 12:41) Unknown Sulfa (Sulfonamide Antibiotics) Allergy (Verified 10/02/19 12:58) Unknown trimethoprim Allergy (Verified 10/02/19 12:58) Unknown Anesthetics - Amide Type Adverse Reaction (Verified 10/02/19 12:55) Nausea hydromorphone [From Dilaudid] Adverse Reaction (Verified 10/02/19 12:55) Unknown midazolam [From Versed] Adverse Reaction (Verified 10/02/19 12:55) Unknown propofol Adverse Reaction (Verified 10/02/19 12:55) Unknown Home Medications: Home Medications Medication Instructions Recorded Confirmed Last Taken Type Dutasteride 0.5 mg PO QDAY 10/03/19 10/03/19 Unknown History Flovent 220 MCG/PUFF HFA 220 mcg INHALATION QDAY 10/03/19 10/03/19 Unknown History Fluticasone [Flonase] 50 mcg INTRANASAL QDAY 10/03/19 10/03/19 Unknown History Furosemide [Lasix TAB] 40 mg PO DAILY PRN 10/03/19 10/03/19 Unknown History HYDROcodone/APAP 10-325 [[place] 10 mg PO Q6HR PRN 10/03/19 10/03/19 Unknown History 10-325 mg TAB] Ipratropium (Nf) [Atrovent HFA 17 mcg INHALATION Q6HR 10/03/19 10/03/19 Unknown History 17MCG/PUFF] Ipratropium (Nf) [Atrovent HFA 200 mg INHALATION QID PRN 10/03/19 10/03/19 Unknown History 17MCG/PUFF] LORazepam [Lorazepam] 1 mg PO Q12HR PRN 10/03/19 10/03/19 Unknown History Loratadine 10 mg PO QDAY 10/03/19 10/03/19 Unknown History Metoprolol [Lopressor TAB] 50 mg PO TID 10/03/19 10/03/19 Unknown History Nicotine [Habitrol] 21 mg TD DAILY 10/03/19 10/03/19 Unknown History Ondansetron (Nf) [Zofran TAB] 8 mg PO PRN PRN 10/03/19 10/03/19 Unknown History Pantoprazole [Protonix TAB] 20 mg PO QDAY 10/03/19 10/03/19 Unknown History Pentoxifylline 400 mg PO BID 10/03/19 10/03/19 Unknown History Wendie-Emilia Rx Tablet 1 tab PO QDAY 10/03/19 10/03/19 Unknown History Terazosin HCl 10 mg PO QHS 10/03/19 10/03/19 Unknown History Tiotropium [place] [Spiriva] 18 mcg INHALATION QDAY 10/03/19 10/03/19 Unknown History cloNIDine [Catapres] 0.2 mg PO TID 10/03/19 10/03/19 Unknown History hydrOXYzine HCL [Atarax] 10 mg PO BID PRN 10/03/19 10/03/19 Unknown History Dutasteride 0.5 mg PO DAILY 10/04/19 10/04/19 Unknown History Active Medications: Generic Name Dose Route Start Last Admin Trade Name Freq PRN Reason Stop Dose Admin Acetaminophen/Hydrocodone Bitart 2 each 10/03/19 16:34 10/04/19 22:25 [place] 5/325 PO 2 each Q6H PRN Administration Pain, Moderate (4-6) Al Hydrox/Mg Hydrox/Simethicone 30 ml 10/04/19 13:19 10/04/19 13:38 Alum-Mag Hydrox-Simeth [id number]/5ml PO 30 ml Q4H PRN Administration Indigestion Alprazolam 0.5 mg 10/02/19 16:29 10/03/19 13:39 Xanax PO 0.5 mg Q8H PRN Administration Anxiety Budesonide 0.5 mg 10/03/19 20:00 10/05/19 07:46 Pulmicort IH Not Given Q12HRT MITZY Cetirizine HCl 10 mg 10/04/19 10:00 10/05/19 10:30 Cetirizine PO 10 mg DAILY MITZY Administration Clonidine HCl 0.2 mg 10/03/19 20:00 10/05/19 10:26 Catapres PO Not Given TID MITZY Fluticasone Propionate 50 mcg 10/04/19 10:00 10/05/19 10:30 Flonase NS 50 mcg QDAY MITZY Administration Hydroxyzine HCl 10 mg 10/03/19 15:49 10/04/19 18:23 Atarax PO 10 mg BID PRN Administration Itching Sodium Bicarbonate 100 meq/ 1,100 mls @ 60 mls/hr 10/04/19 11:00 10/04/19 11:11 Sterile Water IV 60 mls/hr DIRECT MITZY Administration Lorazepam 1 mg 10/03/19 15:49 10/04/19 17:34 Ativan PO 1 mg Q12HR PRN Administration Anxiety Miscellaneous Medication 0.5 mg 10/04/19 22:00 10/05/19 10:29 Dutasteride [Dutasteride] PO 0.5 mg QDAY MITZY Administration Multivit/Ca Carb/B Cmplx/FA/Prenat 1 cap 10/04/19 10:00 10/05/19 10:30 Renal Caps PO 1 cap QDAY MITZY Administration Nicotine 21 mg 10/03/19 19:00 10/05/19 10:30 Habitrol TD 21 mg DAILY MITZY Administration Ondansetron HCl 8 mg 10/03/19 19:25 10/04/19 04:02 Zofran Odt PO 8 mg Q6H PRN Administration Nausea And Vomiting Pantoprazole Sodium 20 mg 10/04/19 10:00 10/05/19 10:30 Protonix PO 20 mg QDAY MITZY Administration Pentoxifylline 400 mg 10/03/19 22:00 10/05/19 10:30 Trental PO 400 mg BID MITZY Administration Prazosin HCl 5 mg 10/03/19 22:00 10/04/19 22:17 Prazosin PO 5 mg QHS [facility] Administration Tiotropium [place] 1 puff 10/04/19 10:00 10/05/19 09:48 Spiriva IH Not Given QDAY MITZY
[2019-10-05] MEDS: HYDROcodone/ACETAMINOPHEN 5-325 MG TAB PO PRN ×2 (11:06→20:50)
[2019-10-05] MEDS: hydrOXYzine HCL 10 MG TAB PO PRN (11:06)
[2019-10-05 12:36] LABS: Hepatitis B Surface Antigen Non-Reactive (Negative); Hepatitis C Virus Antibody Reactive (NonReactive)
[2019-10-05] MEDS: LORazepam 1 MG TAB PO PRN (13:36)
--- NOTE | 2019-10-05 14:42 | Progress Note ---
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 EMS was called and reports large amount of bleeding at the home. He was dressed in the Er and bleeding seems to be stopped now. His Hb dropped to 7.0 which has dropped from prior(Hb 9.8). patient c/o dizziness and generalized weakness. He was admitted for further evaluation and Mx. Nephrology was consulted for CKD - planned to start HD. Subjective Date of service: 10/05/19 Interval history: Patient seen and examined. Medical records and medication list reviewed. No acute event overnight noted by the RN. Patient denies any chest pain or difficulty breathing. Patient is tolerating diet. Has very poor appetite, no further bleeding from the lower extremity wound Planned to start HD today Discussed plan of care at bedside with patient. Objective - Exam Narrative Exam: GENERAL: Patient in no acute distress HEAD: Normocephalic, atraumatic EYES: PERRLA, EOM intact, NOSE: No tenderness, discharge, sinus tenderness MOUTH: No erythema, bleeding, exudate HEART: S1-S2 are auscultated, no edema, LUNGS: No respiratory distress. Bilateral breath sounds, No wheezing, rales, rhonchi ABDOMEN: Normal bowel sounds, abdomen soft, no tenderness, MUSCULOSKELETAL: Normal joint range of motion, generalized muscle wasting NEUROLOGIC: Alert and Oriented x3, normal strength SKIN: Skin is warm and dry, LLE wound with intact dressing - Constitutional Vitals: Vital Signs - 12hr 10/05/19 10/05/19 10/05/19 04:22 10:26 11:53 Temperature 97.9 F 97.7 F Pulse Rate 67 70 73 Respiratory 20 22 Rate Blood Pressure 111/67 109/69 132/68 O2 Sat by Pulse 99 100 Oximetry 10/05/19 13:36 Temperature Pulse Rate 73 Respiratory Rate Blood Pressure 132/68 O2 Sat by Pulse Oximetry - Labs CBC & Chem 7: 10/03/19 15:40 10/05/19 09:22 Labs: Abnormal lab results 10/05/19 10/05/19 Range/Units 09:22 10:47 Chloride 108.9 H (98-107) mmol/L Carbon Dioxide 14 L (22-30) mmol/L BUN 48 H (9-20) mg/dL Creatinine 3.9 H (0.8-1.5) mg/dL Glucose 117 H (75-100) mg/dL Hepatitis C Antibody Reactive A (NonReactive)
[2019-10-05 14:46] LABS: Prealbumin 0.143 g/L (0.200-0.400)
[2019-10-05] MEDS: PRAZOSIN 5 MG CAP PO SCH (22:59)
[2019-10-05] MEDS: ALPRAZolam 0.5 MG TAB PO PRN (23:43)
[2019-10-06] MEDS: BUDESONIDE 0.5 MG/2 ML NEBU IH SCH ×2 (08:44→21:27)
[2019-10-06] MEDS ORDERED: DUTASTERIDE 0.5 MG PO SCH (10:00)
[2019-10-06 10:22] LABS: Calcium 9.6 mg/dL (8.4-10.2)
[2019-10-06] MEDS: cloNIDine 0.2 MG TAB PO SCH ×3 (10:29→21:16)
[2019-10-06] MEDS: PANTOPRAZOLE 20 MG TAB PO SCH (10:41)
[2019-10-06] MEDS: PENTOXIFYLLINE ER 400 MG TAB PO SCH ×2 (10:41→21:07)
[2019-10-06] MEDS: NICOTINE 21 MG/24 HR PATCH TD SCH (10:41)
[2019-10-06] MEDS: ASPIRIN EC 81 MG TAB PO SCH ×2 (10:42→11:07)
[2019-10-06] MEDS: FOLIC ACID/VIT B COMP W-C 1 MG (RENAL CAPS) PO SCH (10:42)
[2019-10-06] MEDS: DUTASTERIDE 0.5 MG PO SCH (10:42)
[2019-10-06] MEDS: CETIRIZINE 10 MG TAB PO SCH (10:42)
[2019-10-06] MEDS: HYDROcodone/ACETAMINOPHEN 5-325 MG TAB PO PRN ×2 (10:52→17:30)
[2019-10-06] MEDS: hydrOXYzine HCL 10 MG TAB PO PRN (10:52)
--- NOTE | 2019-10-06 13:42 | Progress Note ---
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 Personally seen by myself for hyperkalemia in CKD few weeks ago. Previously on HD but stopped due to feeling poorly with HD. S/p first HD yesterday, tolerated well. Will continue HD tomorrow for 2 hours with low flows again, no UF for now. - HD tomorrow, likely will continue twice weekly for 2 hours with slow blood flows. No need for HD today - will need outpatient dialysis placement, appreciate case management # Acidosis: off bicarb gtt currently; improved with HD # Left Foot Wound: wound care following, PT/OT # Anemia: may need ESAs with HD, will start with upcoming treatments # HTN: BP at goal, no UF for now as he is non-oliguric Subjective Date of service: 10/06/19 Interval history: No acute events noted. Had first HD session yesterday, tolerated well. No cramping, no dizziness noted. Did not feel weak after dialysis. Objective - Exam Narrative Exam: General: No acute distress, chronically ill appearing HEENT: NC/AT Neck: Supple Chest: Clear to auscultation Heart: Regular rate and rhythm, S1-S2 Abdomen: Soft nontender ss Dermatology: intact Extremity: no edema, has wound in the left lower extremity Musculoskeletal: No joint effusion noted in knee and ankle area Psych: No evidence of agitation and aggression noted Neurological: Alert awake, no focal deficits Back: No CVA tenderness - Vital Signs Vital signs: Vital Signs - 12hr 10/06/19 10/06/19 05:24 11:40 Temperature 98.2 F 98.2 F Pulse Rate 68 91 H Respiratory 18 18 Rate Blood Pressure 126/65 117/60 O2 Sat by Pulse 98 98 Oximetry - Lab 10/03/19 15:40 10/06/19 08:34 Most recent lab results Calcium 9.6 mg/dL (8.4-10.2) 10/06/19 08:34 Medications & Allergies - Medications Allergies/Adverse Reactions: Allergies albuterol [From Ventolin HFA] Allergy (Verified 10/02/19 12:39) Swelling amlodipine [From Norvasc] Allergy (Verified 10/02/19 12:42) Swelling captopril Allergy (Verified 10/02/19 12:38) Swelling carvedilol Allergy (Verified 10/02/19 12:58) Unknown ceftriaxone [From Rocephin] Allergy (Verified 10/02/19 12:43) Rash cephalexin Allergy (Verified 10/02/19 12:58) Rash clindamycin Allergy (Verified 10/02/19 12:55) Anaphylaxis fentanyl Allergy (Verified 10/02/19 12:55) Unknown guaifenesin Allergy (Verified 10/02/19 12:41) Swelling hydralazine Allergy (Verified 10/02/19 12:42) Swelling Iodinated Contrast Media Allergy (Verified 10/02/19 12:49) Unknown latex Allergy (Verified 10/02/19 12:48) Unknown levofloxacin Allergy (Verified 10/02/19 12:44) Rash lidocaine Allergy (Verified 10/02/19 12:38) Swelling nebivolol [From Bystolic] Allergy (Verified 10/02/19 12:43) Swelling nifedipine [From Nifedical XL] Allergy (Verified 10/02/19 12:48) Swelling nitrofurantoin Allergy (Verified 10/02/19 12:48) Unknown pseudoephedrine Allergy (Verified 10/02/19 12:41) Unknown Sulfa (Sulfonamide Antibiotics) Allergy (Verified 10/02/19 12:58) Unknown trimethoprim Allergy (Verified 10/02/19 12:58) Unknown Anesthetics - Amide Type Adverse Reaction (Verified 10/02/19 12:55) Nausea hydromorphone [From Dilaudid] Adverse Reaction (Verified 10/02/19 12:55) Unknown midazolam [From Versed] Adverse Reaction (Verified 10/02/19 12:55) Unknown propofol Adverse Reaction (Verified 10/02/19 12:55) Unknown Home Medications: Home Medications Medication Instructions Recorded Confirmed Last Taken Type Dutasteride 0.5 mg PO QDAY 10/03/19 10/03/19 Unknown History Flovent 220 MCG/PUFF HFA 220 mcg INHALATION QDAY 10/03/19 10/03/19 Unknown History Fluticasone [Flonase] 50 mcg INTRANASAL QDAY 10/03/19 10/03/19 Unknown History Furosemide [Lasix TAB] 40 mg PO DAILY PRN 10/03/19 10/03/19 Unknown History HYDROcodone/APAP 10-325 [[place] 10 mg PO Q6HR PRN 10/03/19 10/03/19 Unknown History 10-325 mg TAB] Ipratropium (Nf) [Atrovent HFA 17 mcg INHALATION Q6HR 10/03/19 10/03/19 Unknown History 17MCG/PUFF] Ipratropium (Nf) [Atrovent HFA 200 mg INHALATION QID PRN 10/03/19 10/03/19 Unknown History 17MCG/PUFF] LORazepam [Lorazepam] 1 mg PO Q12HR PRN 10/03/19 10/03/19 Unknown History Loratadine 10 mg PO QDAY 10/03/19 10/03/19 Unknown History Metoprolol [Lopressor TAB] 50 mg PO TID 10/03/19 10/03/19 Unknown History Nicotine [Habitrol] 21 mg TD DAILY 10/03/19 10/03/19 Unknown History Ondansetron (Nf) [Zofran TAB] 8 mg PO PRN PRN 10/03/19 10/03/19 Unknown History Pantoprazole [Protonix TAB] 20 mg PO QDAY 10/03/19 10/03/19 Unknown History Pentoxifylline 400 mg PO BID 10/03/19 10/03/19 Unknown History Wendie-Emilia Rx Tablet 1 tab PO QDAY 10/03/19 10/03/19 Unknown History Terazosin HCl 10 mg PO QHS 10/03/19 10/03/19 Unknown History Tiotropium [place] [Spiriva] 18 mcg INHALATION QDAY 10/03/19 10/03/19 Unknown History cloNIDine [Catapres] 0.2 mg PO TID 10/03/19 10/03/19 Unknown History hydrOXYzine HCL [Atarax] 10 mg PO BID PRN 10/03/19 10/03/19 Unknown History Dutasteride 0.5 mg PO DAILY 10/04/19 10/04/19 Unknown History Active Medications: Generic Name Dose Route Start Last Admin Trade Name Freq PRN Reason Stop Dose Admin Acetaminophen/Hydrocodone Bitart 2 each 10/03/19 16:34 10/06/19 10:52 [place] 5/325 PO 2 each Q6H PRN Administration Pain, Moderate (4-6) Al Hydrox/Mg Hydrox/Simethicone 30 ml 10/04/19 13:19 10/04/19 13:38 Alum-Mag Hydrox-Simeth 473-083-59bz/5ml PO 30 ml Q4H PRN Administration Indigestion Alprazolam 0.5 mg 10/02/19 16:29 10/05/19 23:43 Xanax PO 0.5 mg Q8H PRN Administration Anxiety Aspirin 81 mg 10/06/19 10:00 10/06/19 11:07 Halfprin Ec PO Not Given QDAY MITZY Atorvastatin Calcium 10 mg 10/06/19 22:00 Atorvastatin PO QHS MITZY Budesonide 0.5 mg 10/03/19 20:00 10/05/19 21:25 Pulmicort IH 0.5 mg Q12HRT MITZY Administration Cetirizine HCl 10 mg 10/04/19 10:00 10/06/19 10:42 Cetirizine PO 10 mg DAILY MITZY Administration Clonidine HCl 0.2 mg 10/03/19 20:00 10/06/19 10:29 Catapres PO Not Given TID MITZY Fluticasone Propionate 50 mcg 10/04/19 10:00 10/05/19 10:30 Flonase NS 50 mcg QDAY [facility] Administration Hydroxyzine HCl 10 mg 10/03/19 15:49 10/06/19 10:52 Atarax PO 10 mg BID PRN Administration Itching Sodium Chloride 100 mls @ 999 mls/hr 10/05/19 10:30 Nacl 0.9% IV TILA PRN Hypotension Lorazepam 1 mg 10/03/19 15:49 10/05/19 13:36 Ativan PO 1 mg Q12HR PRN Administration Anxiety Miscellaneous Medication 0.5 mg 10/04/19 22:00 10/06/19 10:42 Dutasteride [Dutasteride] PO 0.5 mg QDAY [facility] Administration Multivit/Ca Carb/B Cmplx/FA/Prenat 1 cap 10/04/19 10:00 10/06/19 10:42 Renal Caps PO 1 cap QDAY [facility] Administration Nicotine 21 mg 10/03/19 19:00 10/06/19 10:41 Habitrol TD 21 mg DAILY MITZY Administration Ondansetron HCl 8 mg 10/03/19 19:25 10/04/19 04:02 Zofran Odt PO 8 mg Q6H PRN Administration Nausea And Vomiting Pantoprazole Sodium 20 mg 10/04/19 10:00 10/06/19 10:41 Protonix PO 20 mg QDAY MITZY Administration Pentoxifylline 400 mg 10/03/19 22:00 10/06/19 10:41 Trental PO 400 mg BID MITZY Administration Prazosin HCl 5 mg 10/03/19 22:00 10/05/19 22:59 Prazosin PO 5 mg QHS MITZY Administration Tiotropium Calcium 1 puff 10/04/19 10:00 10/05/19 11:12 Spiriva IH 1 puff QDAY MITZY Administration
[2019-10-06] MEDS: LORazepam 1 MG TAB PO PRN (14:35)
[2019-10-06] MEDS: FLUTICASONE PROPIONATE NASAL SPRAY 16 GM NS SCH (14:35)
[2019-10-06] MEDS: TIOTROPIUM 18 MCG CAP INHALATION IH SCH (15:45)
--- NOTE | 2019-10-06 16:09 | Progress Note ---
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 EMS was called and reports large amount of bleeding at the home. He was dressed in the Er and bleeding seems to be stopped now. His Hb dropped to 7.0 which has dropped from prior(Hb 9.8). patient c/o dizziness and generalized weakness. He was admitted for further evaluation and Mx. Nephrology was consulted for CKD - planned to start HD. History Interval history: Patient seen and examined medical records reviewed Patient feels slightly better Tolerating hemodialysis Awaiting outpatient HD chair scheduling Vital signs noted Hospitalist Physical - Constitutional Vitals: Temp Pulse Resp BP Pulse Ox 98.2 F 91 H 18 117/60 98 10/06/19 11:40 10/06/19 11:40 10/06/19 11:40 10/06/19 14:06 10/06/19 11:40 General appearance: Present: no acute distress, well-nourished - EENT Eyes: Present: PERRL, EOM intact - Neck Neck: Present: supple, normal ROM - Respiratory Respiratory effort: normal Respiratory: bilateral: diminished, negative: rales, rhonchi, wheezing - Cardiovascular Rhythm: regular Heart Sounds: Present: S1 & S2 - Extremities Extremities: no ischemia, No edema - Abdominal General gastrointestinal: soft, non-tender, non-distended, normal bowel sounds - Integumentary Integumentary: Present: clear, warm - Psychiatric Psychiatric: appropriate mood/affect, cooperative - Neurologic Neurologic: moves all extremities Results - Labs CBC & Chem 7: 10/03/19 15:40 10/06/19 08:34 Labs: Laboratory Last Values WBC 10.8 K/mm3 (4.5-11.0) 10/03/19 15:40 RBC 2.68 M/mm3 (3.65-5.03) L 10/03/19 15:40 Hgb 7.9 gm/dl (11.8-15.2) L 10/03/19 15:40 Hct 24.1 % (35.5-45.6) L 10/03/19 15:40 MCV 90 fl (84-94) 10/03/19 15:40 MCH 30 pg (28-32) 10/03/19 15:40 MCHC 33 % (32-34) 10/03/19 15:40 RDW 15.8 % (13.2-15.2) H 10/03/19 15:40 Plt Count 224 K/mm3 (140-440) 10/03/19 15:40 Lymph % (Auto) 21.4 % (13.4-35.0) 10/02/19 12:47 [place] % (Auto) 5.3 % (0.0-7.3) 10/02/19 12:47 Eos % (Auto) 3.2 % (0.0-4.3) 10/02/19 12:47 Baso % (Auto) 0.5 % (0.0-1.8) 10/02/19 12:47 Lymph # 2.2 K/mm3 (1.2-5.4) 10/02/19 12:47 [place] # 0.6 K/mm3 (0.0-0.8) 10/02/19 12:47 Eos # 0.3 K/mm3 (0.0-0.4) 10/02/19 12:47 Baso # 0.1 K/mm3 (0.0-0.1) 10/02/19 12:47 Seg Neutrophils % 69.6 % (40.0-70.0) 10/02/19 12:47 Seg Neutrophils # 7.3 K/mm3 (1.8-7.7) 10/02/19 12:47 PT 16.2 Sec. (12.2-14.9) H 10/02/19 12:47 INR 1.28 (0.87-1.13) H 10/02/19 12:47 APTT 32.8 Sec. (24.2-36.6) 10/02/19 12:47 Sodium 141 mmol/L (137-145) 10/06/19 08:34 Potassium 3.7 mmol/L (3.6-5.0) 10/06/19 08:34 Chloride 107.4 mmol/L (98-107) H 10/06/19 08:34 Carbon Dioxide 23 mmol/L (22-30) D 10/06/19 08:34 Anion Gap 14 mmol/L 10/06/19 08:34 BUN 23 mg/dL (9-20) H 10/06/19 08:34 Creatinine 2.6 mg/dL (0.8-1.5) H 10/06/19 08:34 Estimated GFR 25 ml/min 10/06/19 08:34 BUN/Creatinine Ratio 9 % 10/06/19 08:34 Glucose 88 mg/dL (75-100) 10/06/19 08:34 Calcium 9.6 mg/dL (8.4-10.2) 10/06/19 08:34 Albumin 3.0 g/dL (3.9-5) L 10/05/19 10:47 Prealbumin 0.143 g/L (0.200-0.400) L 10/05/19 10:47 Hepatitis A IgM Ab Non-reactive (NonReactive) 10/05/19 10:47 Hep Bs Antigen Non-reactive (Negative) 10/05/19 10:47 Hep B Core IgM Ab Non-reactive (NonReactive) 10/05/19 10:47 Hepatitis C Antibody Reactive (NonReactive) A 10/05/19 10:47 Blood Type O NEGATIVE 10/02/19 15:52 Antibody Screen Positive 10/02/19 15:52 Antibody Identification Anti-Fya 10/02/19 15:52 Crossmatch See Detail 10/02/19 15:52 Active Medications - Current Medications Current Medications: Generic Name Dose Route Start Last Admin Trade Name Freq PRN Reason Stop Dose Admin Acetaminophen/Hydrocodone Bitart 2 each 10/03/19 16:34 10/06/19 10:52 [place] 5/325 PO 2 each Q6H PRN Administration Pain, Moderate (4-6) Al Hydrox/Mg Hydrox/Simethicone 30 ml 10/04/19 13:19 10/04/19 13:38 Alum-Mag Hydrox-Simeth 704-655-02wr/5ml PO 30 ml Q4H PRN Administration Indigestion Alprazolam 0.5 mg 10/02/19 16:29 10/05/19 23:43 Xanax PO 0.5 mg Q8H PRN Administration Anxiety Aspirin 81 mg 10/06/19 10:00 10/06/19 11:07 Halfprin Ec PO Not Given QDAY MITZY Atorvastatin Calcium 10 mg 10/06/19 22:00 Atorvastatin PO QHS MITZY Budesonide 0.5 mg 10/03/19 20:00 10/06/19 08:44 Pulmicort IH Not Given Q12HRT MITZY Cetirizine HCl 10 mg 10/04/19 10:00 10/06/19 10:42 Cetirizine PO 10 mg DAILY MITZY Administration Clonidine HCl 0.2 mg 10/03/19 20:00 10/06/19 14:06 Catapres PO Not Given TID MITZY Fluticasone Propionate 50 mcg 10/04/19 10:00 10/06/19 14:35 Flonase NS 50 mcg QDAY MITZY Administration Hydroxyzine HCl 10 mg 10/03/19 15:49 10/06/19 10:52 Atarax PO 10 mg BID PRN Administration Itching Sodium Chloride 100 mls @ 999 mls/hr 10/05/19 10:30 Nacl 0.9% IV TILA PRN Hypotension Lorazepam 1 mg 10/03/19 15:49 10/06/19 14:35 Ativan PO 1 mg Q12HR PRN Administration Anxiety Miscellaneous Medication 0.5 mg 10/04/19 22:00 10/06/19 10:42 Dutasteride [Dutasteride] PO 0.5 mg QDAY MITZY Administration Multivit/Ca Carb/B Cmplx/FA/Prenat 1 cap 10/04/19 10:00 10/06/19 10:42 Renal Caps PO 1 cap QDAY MITZY Administration Nicotine 21 mg 10/03/19 19:00 10/06/19 10:41 Habitrol TD 21 mg DAILY MITZY Administration Ondansetron HCl 8 mg 10/03/19 19:25 10/04/19 04:02 Zofran Odt PO 8 mg Q6H PRN Administration Nausea And Vomiting Pantoprazole Sodium 20 mg 10/04/19 10:00 10/06/19 10:41 Protonix PO 20 mg QDAY MITZY Administration Pentoxifylline 400 mg 10/03/19 22:00 10/06/19 10:41 Trental PO 400 mg BID MITZY Administration Prazosin HCl 5 mg 10/03/19 22:00 10/05/19 22:59 Prazosin PO 5 mg QHS MITZY Administration Tiotropium [place] 1 puff 10/04/19 10:00 10/06/19 15:45 Spiriva IH 1 puff QDAY MITZY Administration Nutrition/Malnutrition Assess - Dietary Evaluation Nutrition/Malnutrition Findings: Nutrition Notes Start: 10/03/19 12:20 Freq: Status: Active Protocol: Document 10/06/19 10:08 (Rec: 10/06/19 10:18 [id number]) Nutrition Notes Initial or Follow up Reassessment Current Diagnosis CKD (stage V CKD) Other Pertinent Diagnosis on HD, left LE wound Current Diet Renal Labs/Tests BUN: 48 Cr: 3.9 Pertinent Medications Reviewed Height 5 ft 7 in Weight 54.4 kg [place] Body Weight (kg) 67.27 BMI 18.8 Intake Prior to Admission Poor Subjective/Other Information Pt f/u for PO and ONS intakes, dialysis compliance. Per pt, he recieved dialysis yesterday and now feels much better. RD observed bfast tray with 100% of food consumed. Pt requested to have Nepro now vs . Ensure clear, as he believes Ensure clear is contributing to indigestion. Food preferences noted. Percent of energy/protein needs met: 100%/100% Burn Absent Trauma Absent GI Symptoms None Food Allergy No Current % PO Good (75-100%) Minimum of two criteria Yes Interpretation of Weight Loss (severe) >5% in 1 month Muscle Mass Moderate Depletion (severe) #2 Nutrition Diagnosis Malnutrition As Evidenced by Signs and Symptoms Pt consuming 100% of estimated enegry and protein needs. Diagnosis Progress(for reassessment Improved documentation) #1 Nutrition Diagnosis Inadequate oral intake As Evidenced by Signs and Symptoms Pt consuming 100% of estimated enegry and protein needs. Diagnosis Progress(for reassessment Resolved documentation) Is patient on ventilator? No Is Patient Ambulatory and/or Out of Bed Yes REE-([place]-St. Jeor-ambulatory/OOB) [ 1686.919 [id number]] Calculation Used for Recommendations [facility] Additional Notes PRO needs: 65-82g/day (1.2-1. 5g/kg) Fluid needs: 1L + urine output or MD order Nutrition Intervention Change Diet Order: Continue renal diet Add Supplement/Snack (indicate name/kcal Nepro BID /protein ) Provides kCal: 850 Provides Protein (gm) 38 Goal #1 Pt will meet 80% of kcal needs via PO/ONS intake Anticipated Discharge Needs: renal diet Follow-Up By: 10/08/19 Additional Comments F/u for stable intakes, ONS tolerance
[2019-10-06] MEDS: PRAZOSIN 5 MG CAP PO SCH (21:14)
[2019-10-07] MEDS: HYDROcodone/ACETAMINOPHEN 5-325 MG TAB PO PRN ×4 (01:49→23:35)
[2019-10-07] MEDS: hydrOXYzine HCL 10 MG TAB PO PRN ×3 (01:50→17:21)
[2019-10-07] MEDS: BUDESONIDE 0.5 MG/2 ML NEBU IH SCH ×2 (08:55→20:43)
[2019-10-07] MEDS: TIOTROPIUM 18 MCG CAP INHALATION IH SCH ×2 (08:55→12:20)
[2019-10-07] MEDS ORDERED: SODIUM CHLORIDE 0.9% 100 ML IV PRN (09:19)
[2019-10-07] MEDS: cloNIDine 0.2 MG TAB PO SCH ×2 (10:18→13:17)
[2019-10-07] MEDS: LORazepam 1 MG TAB PO PRN (10:19)
[2019-10-07] MEDS: NICOTINE 21 MG/24 HR PATCH TD SCH (10:20)
[2019-10-07] MEDS: FLUTICASONE PROPIONATE NASAL SPRAY 16 GM NS SCH (10:20)
[2019-10-07] MEDS: FOLIC ACID/VIT B COMP W-C 1 MG (RENAL CAPS) PO SCH (12:12)
[2019-10-07] MEDS: CETIRIZINE 10 MG TAB PO SCH (12:12)
[2019-10-07] MEDS: ASPIRIN EC 81 MG TAB PO SCH (12:12)
[2019-10-07] MEDS: PANTOPRAZOLE 20 MG TAB PO SCH (12:12)
[2019-10-07] MEDS: DUTASTERIDE 0.5 MG PO SCH (12:13)
[2019-10-07] MEDS: PENTOXIFYLLINE ER 400 MG TAB PO SCH ×2 (13:17→23:35)
--- NOTE | 2019-10-07 16:29 | Progress Note ---
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 Personally seen by myself for hyperkalemia in CKD few weeks ago. Previously on HD but stopped due to feeling poorly with HD. S/p first HD 10/05/19, tolerated well. Suspect progression of CKD to ESRD at this time. - HD today, likely will continue twice weekly for 2 hours with slow blood flows - will need outpatient dialysis placement, appreciate case management - avoid nephrotoxins - renally dose meds # Acidosis: off bicarb gtt currently; improved with HD # Left Foot Wound: wound care following, PT/OT # Anemia: may need ESAs with HD, will start with upcoming treatments # HTN: BP at goal, no UF for now as he is non-oliguric Subjective Date of service: 10/07/19 Interval history: No acute events noted. Ready for his HD session. No cramping, no dizziness noted with last dialysis. No dyspnea, no chest pain. Objective - Exam Narrative Exam: General: No acute distress, chronically ill appearing HEENT: NC/AT Neck: Supple Chest: Clear to auscultation Heart: Regular rate and rhythm, S1-S2 Abdomen: Soft nontender ss Dermatology: intact Extremity: no edema, has wound in the left lower extremity Musculoskeletal: No joint effusion noted in knee and ankle area Psych: No evidence of agitation and aggression noted Neurological: Alert awake, no focal deficits Back: No CVA tenderness - Vital Signs Vital signs: Vital Signs - 12hr 10/07/19 10/07/19 10/07/19 05:13 07:55 12:05 Temperature 97.4 F L 97.6 F Pulse Rate 73 Pulse Rate [ 88 Anterior Bilateral Throughout] Pulse Rate [ 76 Posterior Bilateral Throughout] Respiratory 20 18 Rate Respiratory 20 Rate [Anterior Bilateral Throughout] Respiratory 20 Rate [Posterior Bilateral Throughout] Blood Pressure 113/64 111/59 O2 Sat by Pulse 98 Oximetry - Lab 10/03/19 15:40 10/06/19 08:34 Most recent lab results Calcium 9.6 mg/dL (8.4-10.2) 10/06/19 08:34 Medications & Allergies - Medications Allergies/Adverse Reactions: Allergies albuterol [From Ventolin HFA] Allergy (Verified 10/02/19 12:39) Swelling amlodipine [From Norvasc] Allergy (Verified 10/02/19 12:42) Swelling captopril Allergy (Verified 10/02/19 12:38) Swelling carvedilol Allergy (Verified 10/02/19 12:58) Unknown ceftriaxone [From Rocephin] Allergy (Verified 10/02/19 12:43) Rash cephalexin Allergy (Verified 10/02/19 12:58) Rash clindamycin Allergy (Verified 10/02/19 12:55) Anaphylaxis fentanyl Allergy (Verified 10/02/19 12:55) Unknown guaifenesin Allergy (Verified 10/02/19 12:41) Swelling hydralazine Allergy (Verified 10/02/19 12:42) Swelling Iodinated Contrast Media Allergy (Verified 10/02/19 12:49) Unknown latex Allergy (Verified 10/02/19 12:48) Unknown levofloxacin Allergy (Verified 10/02/19 12:44) Rash lidocaine Allergy (Verified 10/02/19 12:38) Swelling nebivolol [From Bystolic] Allergy (Verified 10/02/19 12:43) Swelling nifedipine [From Nifedical XL] Allergy (Verified 10/02/19 12:48) Swelling nitrofurantoin Allergy (Verified 10/02/19 12:48) Unknown pseudoephedrine Allergy (Verified 10/02/19 12:41) Unknown Sulfa (Sulfonamide Antibiotics) Allergy (Verified 10/02/19 12:58) Unknown trimethoprim Allergy (Verified 10/02/19 12:58) Unknown Anesthetics - Amide Type Adverse Reaction (Verified 10/02/19 12:55) Nausea hydromorphone [From Dilaudid] Adverse Reaction (Verified 10/02/19 12:55) Unknown midazolam [From Versed] Adverse Reaction (Verified 10/02/19 12:55) Unknown propofol Adverse Reaction (Verified 10/02/19 12:55) Unknown Home Medications: Home Medications Medication Instructions Recorded Confirmed Last Taken Type Dutasteride 0.5 mg PO QDAY 10/03/19 10/03/19 Unknown History Flovent 220 MCG/PUFF HFA 220 mcg INHALATION QDAY 10/03/19 10/03/19 Unknown History Fluticasone [Flonase] 50 mcg INTRANASAL QDAY 10/03/19 10/03/19 Unknown History Furosemide [Lasix TAB] 40 mg PO DAILY PRN 10/03/19 10/03/19 Unknown History HYDROcodone/APAP 10-325 [[place] 10 mg PO Q6HR PRN 10/03/19 10/03/19 Unknown History 10-325 mg TAB] Ipratropium (Nf) [Atrovent HFA 17 mcg INHALATION Q6HR 10/03/19 10/03/19 Unknown History 17MCG/PUFF] Ipratropium (Nf) [Atrovent HFA 200 mg INHALATION QID PRN 10/03/19 10/03/19 Unknown History 17MCG/PUFF] LORazepam [Lorazepam] 1 mg PO Q12HR PRN 10/03/19 10/03/19 Unknown History Loratadine 10 mg PO QDAY 10/03/19 10/03/19 Unknown History Metoprolol [Lopressor TAB] 50 mg PO TID 10/03/19 10/03/19 Unknown History Nicotine [Habitrol] 21 mg TD DAILY 10/03/19 10/03/19 Unknown History Ondansetron (Nf) [Zofran TAB] 8 mg PO PRN PRN 10/03/19 10/03/19 Unknown History Pantoprazole [Protonix TAB] 20 mg PO QDAY 10/03/19 10/03/19 Unknown History Pentoxifylline 400 mg PO BID 10/03/19 10/03/19 Unknown History Wendie-Emilia Rx Tablet 1 tab PO QDAY 10/03/19 10/03/19 Unknown History Terazosin HCl 10 mg PO QHS 10/03/19 10/03/19 Unknown History Tiotropium [place] [Spiriva] 18 mcg INHALATION QDAY 10/03/19 10/03/19 Unknown History cloNIDine [Catapres] 0.2 mg PO TID 10/03/19 10/03/19 Unknown History hydrOXYzine HCL [Atarax] 10 mg PO BID PRN 10/03/19 10/03/19 Unknown History Dutasteride 0.5 mg PO DAILY 10/04/19 10/04/19 Unknown History Active Medications: Generic Name Dose Route Start Last Admin Trade Name Freq PRN Reason Stop Dose Admin Acetaminophen/Hydrocodone Bitart 2 each 10/03/19 16:34 10/07/19 08:39 [place] 5/325 PO 2 each Q6H PRN Administration Pain, Moderate (4-6) Al Hydrox/Mg Hydrox/Simethicone 30 ml 10/04/19 13:19 10/04/19 13:38 Alum-Mag Hydrox-Simeth 408-356-63pm/5ml PO 30 ml Q4H PRN Administration Indigestion Alprazolam 0.5 mg 10/02/19 16:29 10/05/19 23:43 Xanax PO 0.5 mg Q8H PRN Administration Anxiety Aspirin 81 mg 10/06/19 10:00 10/07/19 12:12 Halfprin Ec PO Not Given QDAY MITZY Atorvastatin Calcium 10 mg 10/06/19 22:00 10/06/19 21:15 Atorvastatin PO Not Given QHS MITZY Budesonide 0.5 mg 10/03/19 20:00 10/07/19 08:55 Pulmicort IH Not Given Q12HRT MITZY Cetirizine HCl 10 mg 10/04/19 10:00 10/07/19 12:12 Cetirizine PO 10 mg DAILY MITZY Administration Clonidine HCl 0.2 mg 10/03/19 20:00 10/07/19 13:17 Catapres PO Not Given TID [facility] Fluticasone Propionate 50 mcg 10/04/19 10:00 10/07/19 10:20 Flonase NS 50 mcg QDAY [facility] Administration Hydroxyzine HCl 10 mg 10/03/19 15:49 10/07/19 08:39 Atarax PO 10 mg BID PRN Administration Itching Sodium Chloride 100 mls @ 999 mls/hr 10/07/19 09:19 Nacl 0.9% IV TILA PRN Hypotension Lorazepam 1 mg 10/03/19 15:49 10/07/19 10:19 Ativan PO 1 mg Q12HR PRN Administration Anxiety Miscellaneous Medication 0.5 mg 10/04/19 22:00 10/07/19 12:13 Dutasteride [Dutasteride] PO 0.5 mg QDAY [facility] Administration Multivit/Ca Carb/B Cmplx/FA/Prenat 1 cap 10/04/19 10:00 10/07/19 12:12 Renal Caps PO 1 cap QDAY MITZY Administration Nicotine 21 mg 10/03/19 19:00 10/07/19 10:20 Habitrol TD 21 mg DAILY MITZY Administration Ondansetron HCl 8 mg 10/03/19 19:25 10/04/19 04:02 Zofran Odt PO 8 mg Q6H PRN Administration Nausea And Vomiting Pantoprazole Sodium 20 mg 10/04/19 10:00 10/07/19 12:12 Protonix PO 20 mg QDAY MITZY Administration Pentoxifylline 400 mg 10/03/19 22:00 10/07/19 13:17 Trental PO 400 mg BID MITZY Administration Prazosin HCl 5 mg 10/03/19 22:00 10/06/19 21:14 Prazosin PO 5 mg QHS MITZY Administration Tiotropium [place] 1 puff 10/04/19 10:00 10/07/19 12:20 Spiriva IH Not Given QDAY MITZY
[2019-10-07] MEDS ORDERED: hydrOXYzine HCL 10 MG TAB PO PRN (17:13)
--- NOTE | 2019-10-07 18:14 | Progress Note ---
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, nephrology following Case management set up outpatient HD schedule LLE chronic ulcer - Wound care consult, we will follow recommendation Acute blood loss symptomatic anemia from LE wound monitor h/H, transfused one unit Hold any heparin products COPD on home O2 - We'll continue supplemental O2 and nebs as needed HTN, stable - Continue home meds Anxiety -Xanax as needed Severe PCM - nutrition consult, nutritional supplement - scd fro DVt Px Disposition: Wait for PT eval and wound care recommendation, need outpt HD setup History Interval history: Patient seen and examined medical records reviewed Patient feels better no new complaints Vital signs reviewed Has positive MRSA nares Hospitalist Physical - Constitutional Vitals: Temp Pulse Resp BP Pulse Ox 97.6 F 88 18 111/59 98 10/07/19 12:05 10/07/19 07:55 10/07/19 12:05 10/07/19 12:05 10/07/19 05:13 General appearance: Present: no acute distress, well-nourished - EENT Eyes: Present: PERRL, EOM intact - Neck Neck: Present: supple, normal ROM - Respiratory Respiratory effort: normal Respiratory: bilateral: diminished, negative: rales, rhonchi, wheezing - Cardiovascular Rhythm: regular Heart Sounds: Present: S1 & S2 - Extremities Extremities: no ischemia, abnormal (lower extremity dressing in place) - Abdominal General gastrointestinal: soft, non-tender, non-distended, normal bowel sounds - Integumentary Integumentary: Present: clear, warm - Psychiatric Psychiatric: appropriate mood/affect, cooperative - Neurologic Neurologic: CNII-XII intact, moves all extremities Results - Labs CBC & Chem 7: 10/03/19 15:40 10/06/19 08:34 Labs: Laboratory Last Values WBC 10.8 K/mm3 (4.5-11.0) 10/03/19 15:40 RBC 2.68 M/mm3 (3.65-5.03) L 10/03/19 15:40 Hgb 7.9 gm/dl (11.8-15.2) L 10/03/19 15:40 Hct 24.1 % (35.5-45.6) L 10/03/19 15:40 MCV 90 fl (84-94) 10/03/19 15:40 MCH 30 pg (28-32) 10/03/19 15:40 MCHC 33 % (32-34) 10/03/19 15:40 RDW 15.8 % (13.2-15.2) H 10/03/19 15:40 Plt Count 224 K/mm3 (140-440) 10/03/19 15:40 Lymph % (Auto) 21.4 % (13.4-35.0) 10/02/19 12:47 [place] % (Auto) 5.3 % (0.0-7.3) 10/02/19 12:47 Eos % (Auto) 3.2 % (0.0-4.3) 10/02/19 12:47 Baso % (Auto) 0.5 % (0.0-1.8) 10/02/19 12:47 Lymph # 2.2 K/mm3 (1.2-5.4) 10/02/19 12:47 [place] # 0.6 K/mm3 (0.0-0.8) 10/02/19 12:47 Eos # 0.3 K/mm3 (0.0-0.4) 10/02/19 12:47 Baso # 0.1 K/mm3 (0.0-0.1) 10/02/19 12:47 Seg Neutrophils % 69.6 % (40.0-70.0) 10/02/19 12:47 Seg Neutrophils # 7.3 K/mm3 (1.8-7.7) 10/02/19 12:47 PT 16.2 Sec. (12.2-14.9) H 10/02/19 12:47 INR 1.28 (0.87-1.13) H 10/02/19 12:47 APTT 32.8 Sec. (24.2-36.6) 10/02/19 12:47 Sodium 141 mmol/L (137-145) 10/06/19 08:34 Potassium 3.7 mmol/L (3.6-5.0) 10/06/19 08:34 Chloride 107.4 mmol/L (98-107) H 10/06/19 08:34 Carbon Dioxide 23 mmol/L (22-30) D 10/06/19 08:34 Anion Gap 14 mmol/L 10/06/19 08:34 BUN 23 mg/dL (9-20) H 10/06/19 08:34 Creatinine 2.6 mg/dL (0.8-1.5) H 10/06/19 08:34 Estimated GFR 25 ml/min 10/06/19 08:34 BUN/Creatinine Ratio 9 % 10/06/19 08:34 Glucose 88 mg/dL (75-100) 10/06/19 08:34 Calcium 9.6 mg/dL (8.4-10.2) 10/06/19 08:34 Albumin 3.0 g/dL (3.9-5) L 10/05/19 10:47 Prealbumin 0.143 g/L (0.200-0.400) L 10/05/19 10:47 Hepatitis A IgM Ab Non-reactive (NonReactive) 10/05/19 10:47 Hep Bs Antigen Non-reactive (Negative) 10/05/19 10:47 Hep B Core IgM Ab Non-reactive (NonReactive) 10/05/19 10:47 Hepatitis C Antibody Reactive (NonReactive) A 10/05/19 10:47 Blood Type O NEGATIVE 10/02/19 15:52 Antibody Screen Positive 10/02/19 15:52 Antibody Identification Anti-Fya 10/02/19 15:52 Crossmatch See Detail 10/02/19 15:52 Active Medications - Current Medications Current Medications: Generic Name Dose Route Start Last Admin Trade Name Freq PRN Reason Stop Dose Admin Acetaminophen/Hydrocodone Bitart 2 each 10/03/19 16:34 10/07/19 17:21 [place] 5/325 PO 2 each Q6H PRN Administration Pain, Moderate (4-6) Al Hydrox/Mg Hydrox/Simethicone 30 ml 10/04/19 13:19 10/04/19 13:38 Alum-Mag Hydrox-Simeth [id number]/5ml PO 30 ml Q4H PRN Administration Indigestion Alprazolam 0.5 mg 10/02/19 16:29 10/05/19 23:43 Xanax PO 0.5 mg Q8H PRN Administration Anxiety Aspirin 81 mg 10/06/19 10:00 10/07/19 12:12 Halfprin Ec PO Not Given QDAY MITZY Atorvastatin Calcium 10 mg 10/06/19 22:00 10/06/19 21:15 Atorvastatin PO Not Given QHS MITZY Budesonide 0.5 mg 10/03/19 20:00 10/07/19 08:55 Pulmicort IH Not Given Q12HRT MITZY Cetirizine HCl 10 mg 10/04/19 10:00 10/07/19 12:12 Cetirizine PO 10 mg DAILY MITZY Administration Clonidine HCl 0.2 mg 10/03/19 20:00 10/07/19 13:17 Catapres PO Not Given TID MITZY Fluticasone Propionate 50 mcg 10/04/19 10:00 10/07/19 10:20 Flonase NS 50 mcg QDAY [facility] Administration Hydroxyzine HCl 10 mg 10/07/19 17:13 10/07/19 17:21 Atarax PO 10 mg TID PRN Administration Itching Sodium Chloride 100 mls @ 999 mls/hr 10/07/19 09:19 Nacl 0.9% IV TILA PRN Hypotension Lorazepam 1 mg 10/03/19 15:49 10/07/19 10:19 Ativan PO 1 mg Q12HR PRN Administration Anxiety Miscellaneous Medication 0.5 mg 10/04/19 22:00 10/07/19 12:13 Dutasteride [Dutasteride] PO 0.5 mg QDAY [facility] Administration Multivit/Ca Carb/B Cmplx/FA/Prenat 1 cap 10/04/19 10:00 10/07/19 12:12 Renal Caps PO 1 cap QDAY [facility] Administration Nicotine 21 mg 10/03/19 19:00 10/07/19 10:20 Habitrol TD 21 mg DAILY [facility] Administration Ondansetron HCl 8 mg 10/03/19 19:25 10/04/19 04:02 Zofran Odt PO 8 mg Q6H PRN Administration Nausea And Vomiting Pantoprazole Sodium 20 mg 10/04/19 10:00 10/07/19 12:12 Protonix PO 20 mg QDAY [facility] Administration Pentoxifylline 400 mg 10/03/19 22:00 10/07/19 13:17 Trental PO 400 mg BID MITZY Administration Prazosin HCl 5 mg 10/03/19 22:00 10/06/19 21:14 Prazosin PO 5 mg QHS [facility] Administration Tiotropium [place] 1 puff 10/04/19 10:00 10/07/19 12:20 Spiriva IH Not Given QDAY [facility] Nutrition/Malnutrition Assess - Dietary Evaluation Nutrition/Malnutrition Findings: Nutrition Notes Start: 10/03/19 12:2 0 Freq: Status: Active Protocol: Document 10/07/19 11:55 PUMA (Rec: 10/07/19 12:04 PUMA [id number]) Co-Sign 10/07/19 11:55 LP Nutrition Notes Initial or Follow up Reassessment Current Diagnosis CKD (stage V CKD) Other Pertinent Diagnosis on HD, left LE wound Current Diet Renal Labs/Tests BUN 23 Cr 2.6 Pertinent Medications Reviewed Height 5 ft 7 in Weight 54.4 kg [place] Body Weight (kg) 67.27 BMI 18.8 Weight change and time frame Wt change noted. Pt was sitting up. Pt stated that after wt loss he normally weighed 120lb. Using previous wt. Subjective/Other Information F/U for stable PO and ONS intakes. Pt stated that appetite has been good and ate 100% of breakfast. Pt ate breakfast and lunch yesterday and a little bit of dinner due to too much spice. Pt is tolerating the nepro well. Percent of energy/protein needs met: 100%/100% Burn Absent Trauma Absent GI Symptoms None Current % PO Good (75-100%) Minimum of two criteria Yes Interpretation of Weight Loss (severe) >5% in 1 month Muscle Mass Moderate Depletion (severe) #2 Nutrition Diagnosis Malnutrition As Evidenced by Signs and Symptoms Pt consuming 100% of estimated enegry and protein needs. Diagnosis Progress(for reassessment Improved documentation) Is patient on ventilator? No Is Patient Ambulatory and/or Out of Bed Yes REE-([place]-St. Jeor-ambulatory/OOB) [ 1686.919 [id number]] Calculation [facility] Additional Notes PRO needs: 65-82g/day (1.2-1. 5g/kg) Fluid needs: 1L + urine output or MD order Nutrition Intervention Change Diet Order: Continue renal diet Add Supplement/Snack (indicate name/kcal [place] BID /protein ) Provides kCal: 850 Provides Protein (gm) 38 Goal #1 Pt will meet 80% of kcal needs via PO/ONS intake Anticipated Discharge Needs: renal diet Follow-Up By: 10/14/19 Additional Comments F/U for stable PO and ONS intakes
[2019-10-07] MEDS: MUPIROCIN 2% OINT 22 GM NS SCH (23:31)
[2019-10-07] MEDS: LIP THERAPY VASELINE TP PRN (23:32)
[2019-10-08] MEDS: cloNIDine 0.2 MG TAB PO SCH ×4 (01:50→23:27)
[2019-10-08] MEDS: PRAZOSIN 5 MG CAP PO SCH ×2 (01:51→23:34)
[2019-10-08] MEDS: LORazepam 1 MG TAB PO PRN ×2 (02:10→17:08)
[2019-10-08] MEDS: BUDESONIDE 0.5 MG/2 ML NEBU IH SCH ×2 (08:37→21:14)
[2019-10-08] MEDS: HYDROcodone/ACETAMINOPHEN 5-325 MG TAB PO PRN ×2 (08:44→17:08)
[2019-10-08] MEDS: ALPRAZolam 0.5 MG TAB PO PRN (08:44)
[2019-10-08] MEDS: TIOTROPIUM 18 MCG CAP INHALATION IH SCH ×2 (08:57→11:25)
--- NOTE | 2019-10-08 11:15 | XRay Report ---
CHEST PA AND LATERAL VIEWS INDICATION: Dialysis placement. COMPARISON: 07/10/2017 FINDINGS: Support devices: None. Heart: Within normal limits. Lungs/Pleura: No consolidation or effusion. No pneumothorax. Minimal streaky opacities in both mid an d lower lungs may be areas of subsegmental atelectasis. IMPRESSION: 1. No acute findings. Signer Name: Messi Phipps MD Signed: 10/08/2019 11:11 AM Workstation Name: [email or web address]
[2019-10-08] MEDS: FLUTICASONE PROPIONATE NASAL SPRAY 16 GM NS SCH (11:30)
[2019-10-08] MEDS: MUPIROCIN 2% OINT 22 GM NS SCH ×2 (11:31→23:26)
[2019-10-08] MEDS: PENTOXIFYLLINE ER 400 MG TAB PO SCH ×2 (11:31→23:28)
[2019-10-08] MEDS: DUTASTERIDE 0.5 MG PO SCH (11:32)
[2019-10-08] MEDS: ASPIRIN EC 81 MG TAB PO SCH (11:32)
[2019-10-08] MEDS: PANTOPRAZOLE 20 MG TAB PO SCH (11:33)
[2019-10-08] MEDS: CETIRIZINE 10 MG TAB PO SCH (11:33)
[2019-10-08] MEDS: NICOTINE 21 MG/24 HR PATCH TD SCH (11:33)
[2019-10-08] MEDS: FOLIC ACID/VIT B COMP W-C 1 MG (RENAL CAPS) PO SCH (11:33)
[2019-10-08] MEDS: hydrOXYzine HCL 10 MG TAB PO PRN ×2 (11:49→23:27)
--- NOTE | 2019-10-08 12:09 | Progress Note ---
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 Personally seen by myself for hyperkalemia in CKD few weeks ago. Previously on HD but stopped due to feeling poorly with HD. S/p first HD 10/05/19, tolerated well. Suspect progression of CKD to ESRD at this time. - HD yesterday; will plan to continue HD twice weekly for 2 hours; check for HD in AM but likely plan for HD on 10/10/2019 - will need outpatient dialysis placement, appreciate case management - avoid nephrotoxins - renally dose meds # Acidosis: off bicarb gtt currently; improved with HD # Left Foot Wound: wound care following, PT/OT # Anemia: may need ESAs with HD, will start with upcoming treatments # HTN: BP at goal, no UF for now as he is non-oliguric Subjective Date of service: 10/08/19 Interval history: No acute events noted. No issues noted with HD yesterday. No cramping, no dizziness noted. No dyspnea, no chest pain. Objective - Exam Narrative Exam: General: No acute distress, chronically ill appearing HEENT: NC/AT Neck: Supple Chest: Clear to auscultation Heart: Regular rate and rhythm, S1-S2 Abdomen: Soft nontender ss Dermatology: intact Extremity: no edema, has wound in the left lower extremity Musculoskeletal: No joint effusion noted in knee and ankle area Psych: No evidence of agitation and aggression noted Neurological: Alert awake, no focal deficits Back: No CVA tenderness - Vital Signs Vital signs: Vital Signs - 12hr 10/08/19 10/08/19 10/08/19 01:50 01:51 06:32 Temperature 98.0 F Pulse Rate 92 H 92 H 81 Respiratory 18 Rate Blood Pressure 96/67 96/67 149/79 O2 Sat by Pulse 98 Oximetry 10/08/19 08:43 Temperature Pulse Rate 81 Respiratory Rate Blood Pressure 149/79 O2 Sat by Pulse Oximetry - Lab 10/03/19 15:40 10/06/19 08:34 Most recent lab results Calcium 9.6 mg/dL (8.4-10.2) 10/06/19 08:34 Medications & Allergies - Medications Allergies/Adverse Reactions: Allergies albuterol [From Ventolin HFA] Allergy (Verified 10/02/19 12:39) Swelling amlodipine [From Norvasc] Allergy (Verified 10/02/19 12:42) Swelling captopril Allergy (Verified 10/02/19 12:38) Swelling carvedilol Allergy (Verified 10/02/19 12:58) Unknown ceftriaxone [From Rocephin] Allergy (Verified 10/02/19 12:43) Rash cephalexin Allergy (Verified 10/02/19 12:58) Rash clindamycin Allergy (Verified 10/02/19 12:55) Anaphylaxis fentanyl Allergy (Verified 10/02/19 12:55) Unknown guaifenesin Allergy (Verified 10/02/19 12:41) Swelling hydralazine Allergy (Verified 10/02/19 12:42) Swelling Iodinated Contrast Media Allergy (Verified 10/02/19 12:49) Unknown latex Allergy (Verified 10/02/19 12:48) Unknown levofloxacin Allergy (Verified 10/02/19 12:44) Rash lidocaine Allergy (Verified 10/02/19 12:38) Swelling nebivolol [From Bystolic] Allergy (Verified 10/02/19 12:43) Swelling nifedipine [From Nifedical XL] Allergy (Verified 10/02/19 12:48) Swelling nitrofurantoin Allergy (Verified 10/02/19 12:48) Unknown pseudoephedrine Allergy (Verified 10/02/19 12:41) Unknown Sulfa (Sulfonamide Antibiotics) Allergy (Verified 10/02/19 12:58) Unknown trimethoprim Allergy (Verified 10/02/19 12:58) Unknown Anesthetics - Amide Type Adverse Reaction (Verified 10/02/19 12:55) Nausea hydromorphone [From Dilaudid] Adverse Reaction (Verified 10/02/19 12:55) Unknown midazolam [From Versed] Adverse Reaction (Verified 10/02/19 12:55) Unknown propofol Adverse Reaction (Verified 10/02/19 12:55) Unknown Home Medications: Home Medications Medication Instructions Recorded Confirmed Last Taken Type Dutasteride 0.5 mg PO QDAY 10/03/19 10/03/19 Unknown History Flovent 220 MCG/PUFF HFA 220 mcg INHALATION QDAY 10/03/19 10/03/19 Unknown History Fluticasone [Flonase] 50 mcg INTRANASAL QDAY 10/03/19 10/03/19 Unknown History Furosemide [Lasix TAB] 40 mg PO DAILY PRN 10/03/19 10/03/19 Unknown History HYDROcodone/APAP 10-325 [[place] 10 mg PO Q6HR PRN 10/03/19 10/03/19 Unknown History 10-325 mg TAB] Ipratropium (Nf) [Atrovent HFA 17 mcg INHALATION Q6HR 10/03/19 10/03/19 Unknown History 17MCG/PUFF] Ipratropium (Nf) [Atrovent HFA 200 mg INHALATION QID PRN 10/03/19 10/03/19 Unknown History 17MCG/PUFF] LORazepam [Lorazepam] 1 mg PO Q12HR PRN 10/03/19 10/03/19 Unknown History Loratadine 10 mg PO QDAY 10/03/19 10/03/19 Unknown History Metoprolol [Lopressor TAB] 50 mg PO TID 10/03/19 10/03/19 Unknown History Nicotine [Habitrol] 21 mg TD DAILY 10/03/19 10/03/19 Unknown History Ondansetron (Nf) [Zofran TAB] 8 mg PO PRN PRN 10/03/19 10/03/19 Unknown History Pantoprazole [Protonix TAB] 20 mg PO QDAY 10/03/19 10/03/19 Unknown History Pentoxifylline 400 mg PO BID 10/03/19 10/03/19 Unknown History Wendie-Emilia Rx Tablet 1 tab PO QDAY 10/03/19 10/03/19 Unknown History Terazosin HCl 10 mg PO QHS 10/03/19 10/03/19 Unknown History Tiotropium [place] [Spiriva] 18 mcg INHALATION QDAY 10/03/19 10/03/19 Unknown History cloNIDine [Catapres] 0.2 mg PO TID 10/03/19 10/03/19 Unknown History hydrOXYzine HCL [Atarax] 10 mg PO BID PRN 10/03/19 10/03/19 Unknown History Dutasteride 0.5 mg PO DAILY 10/04/19 10/04/19 Unknown History Active Medications: Generic Name Dose Route Start Last Admin Trade Name Freq PRN Reason Stop Dose Admin Acetaminophen/Hydrocodone Bitart 2 each 10/03/19 16:34 10/08/19 08:44 [place] 5/325 PO 2 each Q6H PRN Administration Pain, Moderate (4-6) Al Hydrox/Mg Hydrox/Simethicone 30 ml 10/04/19 13:19 10/04/19 13:38 Alum-Mag Hydrox-Simeth 269-785-95ik/5ml PO 30 ml Q4H PRN Administration Indigestion Alprazolam 0.5 mg 10/02/19 16:29 10/08/19 08:44 Xanax PO 0.5 mg Q8H PRN Administration Anxiety Aspirin 81 mg 10/06/19 10:00 10/08/19 11:32 Halfprin Ec PO Not Given QDAY MITZY Atorvastatin Calcium 10 mg 10/06/19 22:00 10/08/19 00:15 Atorvastatin PO Not Given QHS MITZY Budesonide 0.5 mg 10/03/19 20:00 10/08/19 08:37 Pulmicort IH Not Given Q12HRT MITZY Cetirizine HCl 10 mg 10/04/19 10:00 10/08/19 11:33 Cetirizine PO 10 mg DAILY MITZY Administration Clonidine HCl 0.2 mg 10/03/19 20:00 10/08/19 08:43 Catapres PO 0.2 mg TID MITZY Administration Fluticasone Propionate 50 mcg 10/04/19 10:00 10/08/19 11:30 Flonase NS 50 mcg QDAY MITZY Administration Hydrophilic Ointment 1 applic 10/07/19 19:39 10/07/19 23:32 Vaseline Lip Therapy TP 1 applic DIRECT PRN Administration Dry Lips Hydroxyzine HCl 10 mg 10/07/19 17:13 10/08/19 11:49 Atarax PO 10 mg TID PRN Administration Itching Sodium Chloride 100 mls @ 999 mls/hr 10/07/19 09:19 Nacl 0.9% IV TILA PRN Hypotension Lorazepam 1 mg 10/03/19 15:49 10/08/19 02:10 Ativan PO 1 mg Q12HR PRN Administration Anxiety Miscellaneous Medication 0.5 mg 10/04/19 22:00 10/08/19 11:32 Dutasteride [Dutasteride] PO 0.5 mg QDAY MITZY Administration Multivit/Ca Carb/B Cmplx/FA/Prenat 1 cap 10/04/19 10:00 10/08/19 11:33 Renal Caps PO 1 cap QDAY MITZY Administration Mupirocin 1 applic 10/07/19 22:00 10/08/19 11:31 Bactroban 2% NS 1 applic BID MITZY Administration Nicotine 21 mg 10/03/19 19:00 10/08/19 11:33 Habitrol TD 21 mg DAILY MITZY Administration Ondansetron HCl 8 mg 10/03/19 19:25 10/04/19 04:02 Zofran Odt PO 8 mg Q6H PRN Administration Nausea And Vomiting Pantoprazole Sodium 20 mg 10/04/19 10:00 10/08/19 11:33 Protonix PO 20 mg QDAY MITZY Administration Pentoxifylline 400 mg 10/03/19 22:00 10/08/19 11:31 Trental PO 400 mg BID MITZY Administration Prazosin HCl 5 mg 10/03/19 22:00 10/08/19 01:51 Prazosin PO Not Given QHS [facility] Tiotropium [place] 1 puff 10/04/19 10:00 10/08/19 11:25 Spiriva IH Not Given QDAY MITZY
--- NOTE | 2019-10-08 18:55 | Progress Note ---
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, nephrology following Case management set up outpatient HD schedule --LLE chronic ulcer: Wound care Physical therapy occupational therapy --Acute blood loss symptomatic anemia from LE wound monitor h/H, transfused one unit Hold any heparin products --History of COPD on home O2; well compensated --HTN, stable: Well-controlled, continue current antihypertensives --General anxiety:Xanax as needed --Severe malnutrition: nutrition consult, nutritional supplement --DVT prophylaxis; SCDs Disposition: Wait for PT eval and wound care recommendation, need outpt HD setup History Interval history: Patient seen and examined this morning Medical records and medication list reviewed Patient feels better complains of generalized weakness Concerned about many medications that he is getting Discussed with him extensively the role of each medication Vital signs stable no new complaints Awaiting outpatient HD placement Hospitalist Physical - Constitutional Vitals: Temp Pulse Resp BP Pulse Ox 97.6 F 74 20 146/73 100 10/08/19 16:58 10/08/19 16:58 10/08/19 16:58 10/08/19 16:58 10/08/19 16:58 General appearance: Present: no acute distress, well-nourished - EENT Eyes: Present: PERRL, EOM intact - Neck Neck: Present: supple, normal ROM - Respiratory Respiratory effort: normal Respiratory: bilateral: diminished, negative: rales, rhonchi, wheezing - Cardiovascular Rhythm: regular Heart Sounds: Present: S1 & S2 - Extremities Extremities: no ischemia, pulses intact, abnormal (Lower extremity wound in dressing) - Abdominal General gastrointestinal: soft, non-tender, non-distended, normal bowel sounds - Integumentary Integumentary: Present: clear, warm - Psychiatric Psychiatric: appropriate mood/affect, cooperative - Neurologic Neurologic: CNII-XII intact, moves all extremities Results - Labs CBC & Chem 7: 10/03/19 15:40 10/06/19 08:34 Labs: Laboratory Last Values WBC 10.8 K/mm3 (4.5-11.0) 10/03/19 15:40 RBC 2.68 M/mm3 (3.65-5.03) L 10/03/19 15:40 Hgb 7.9 gm/dl (11.8-15.2) L 10/03/19 15:40 Hct 24.1 % (35.5-45.6) L 10/03/19 15:40 MCV 90 fl (84-94) 10/03/19 15:40 MCH 30 pg (28-32) 10/03/19 15:40 MCHC 33 % (32-34) 10/03/19 15:40 RDW 15.8 % (13.2-15.2) H 10/03/19 15:40 Plt Count 224 K/mm3 (140-440) 10/03/19 15:40 Lymph % (Auto) 21.4 % (13.4-35.0) 10/02/19 12:47 [place] % (Auto) 5.3 % (0.0-7.3) 10/02/19 12:47 Eos % (Auto) 3.2 % (0.0-4.3) 10/02/19 12:47 Baso % (Auto) 0.5 % (0.0-1.8) 10/02/19 12:47 Lymph # 2.2 K/mm3 (1.2-5.4) 10/02/19 12:47 [place] # 0.6 K/mm3 (0.0-0.8) 10/02/19 12:47 Eos # 0.3 K/mm3 (0.0-0.4) 10/02/19 12:47 Baso # 0.1 K/mm3 (0.0-0.1) 10/02/19 12:47 Seg Neutrophils % 69.6 % (40.0-70.0) 10/02/19 12:47 Seg Neutrophils # 7.3 K/mm3 (1.8-7.7) 10/02/19 12:47 PT 16.2 Sec. (12.2-14.9) H 10/02/19 12:47 INR 1.28 (0.87-1.13) H 10/02/19 12:47 APTT 32.8 Sec. (24.2-36.6) 10/02/19 12:47 Sodium 141 mmol/L (137-145) 10/06/19 08:34 Potassium 3.7 mmol/L (3.6-5.0) 10/06/19 08:34 Chloride 107.4 mmol/L (98-107) H 10/06/19 08:34 Carbon Dioxide 23 mmol/L (22-30) D 10/06/19 08:34 Anion Gap 14 mmol/L 10/06/19 08:34 BUN 23 mg/dL (9-20) H 10/06/19 08:34 Creatinine 2.6 mg/dL (0.8-1.5) H 10/06/19 08:34 Estimated GFR 25 ml/min 10/06/19 08:34 BUN/Creatinine Ratio 9 % 10/06/19 08:34 Glucose 88 mg/dL (75-100) 10/06/19 08:34 Calcium 9.6 mg/dL (8.4-10.2) 10/06/19 08:34 Albumin 3.0 g/dL (3.9-5) L 10/05/19 10:47 Prealbumin 0.143 g/L (0.200-0.400) L 10/05/19 10:47 Hepatitis A IgM Ab Non-reactive (NonReactive) 10/05/19 10:47 Hep Bs Antigen Non-reactive (Negative) 10/05/19 10:47 Hep B Core IgM Ab Non-reactive (NonReactive) 10/05/19 10:47 Hepatitis C Antibody Reactive (NonReactive) A 10/05/19 10:47 Blood Type O NEGATIVE 10/02/19 15:52 Antibody Screen Positive 10/02/19 15:52 Antibody Identification Anti-Fya 10/02/19 15:52 Crossmatch See Detail 10/02/19 15:52 Active Medications - Current Medications Current Medications: Generic Name Dose Route Start Last Admin Trade Name Freq PRN Reason Stop Dose Admin Acetaminophen/Hydrocodone Bitart 2 each 10/03/19 16:34 10/08/19 17:08 [place] 5/325 PO 2 each Q6H PRN Administration Pain, Moderate (4-6) Al Hydrox/Mg Hydrox/Simethicone 30 ml 10/04/19 13:19 10/04/19 13:38 Alum-Mag Hydrox-Simeth 806-420-81bs/5ml PO 30 ml Q4H PRN Administration Indigestion Alprazolam 0.5 mg 10/02/19 16:29 10/08/19 08:44 Xanax PO 0.5 mg Q8H PRN Administration Anxiety Aspirin 81 mg 10/06/19 10:00 10/08/19 11:32 Halfprin Ec PO Not Given QDAY MITZY Atorvastatin Calcium 10 mg 10/06/19 22:00 10/08/19 00:15 Atorvastatin PO Not Given QHS MITZY Budesonide 0.5 mg 10/03/19 20:00 10/08/19 08:37 Pulmicort IH Not Given Q12HRT MITZY Cetirizine HCl 10 mg 10/04/19 10:00 10/08/19 11:33 Cetirizine PO 10 mg DAILY MITZY Administration Clonidine HCl 0.2 mg 10/03/19 20:00 10/08/19 14:00 Catapres PO Not Given TID MITZY Fluticasone Propionate 50 mcg 10/04/19 10:00 10/08/19 11:30 Flonase NS 50 mcg QDAY MITZY Administration Hydrophilic Ointment 1 applic 10/07/19 19:39 10/07/19 23:32 Vaseline Lip Therapy TP 1 applic DIRECT PRN Administration Dry Lips Hydroxyzine HCl 10 mg 10/07/19 17:13 10/08/19 11:49 Atarax PO 10 mg TID PRN Administration Itching Sodium Chloride 100 mls @ 999 mls/hr 10/07/19 09:19 Nacl 0.9% IV TILA PRN Hypotension Lorazepam 1 mg 10/03/19 15:49 10/08/19 17:08 Ativan PO 1 mg Q12HR PRN Administration Anxiety Miscellaneous Medication 0.5 mg 10/04/19 22:00 10/08/19 11:32 Dutasteride [Dutasteride] PO 0.5 mg QDAY MITZY Administration Multivit/Ca Carb/B Cmplx/FA/Prenat 1 cap 10/04/19 10:00 10/08/19 11:33 Renal Caps PO 1 cap QDAY MITZY Administration Mupirocin 1 applic 10/07/19 22:00 10/08/19 11:31 Bactroban 2% NS 1 applic BID MITZY Administration Nicotine 21 mg 10/03/19 19:00 10/08/19 11:33 Habitrol TD 21 mg DAILY MITZY Administration Ondansetron HCl 8 mg 10/03/19 19:25 10/04/19 04:02 Zofran Odt PO 8 mg Q6H PRN Administration Nausea And Vomiting Pantoprazole Sodium 20 mg 10/04/19 10:00 10/08/19 11:33 Protonix PO 20 mg QDAY MITZY Administration Pentoxifylline 400 mg 10/03/19 22:00 10/08/19 11:31 Trental PO 400 mg BID MITZY Administration Prazosin HCl 5 mg 10/03/19 22:00 10/08/19 01:51 Prazosin PO Not Given QHS MITZY Tiotropium [place] 1 puff 10/04/19 10:00 10/08/19 11:25 Spiriva IH Not Given QDAY MITZY Nutrition/Malnutrition Assess - Dietary Evaluation Nutrition/Malnutrition Findings: Nutrition Notes Start: 10/03/19 12:20 Freq: Status: Active Protocol: Document 10/07/19 11:55 PUMA (Rec: 10/07/19 12:04 PUMA [id number]) Co-Sign 10/07/19 11:55 LP Nutrition Notes Initial or Follow up Reassessment Current Diagnosis CKD (stage V CKD) Other Pertinent Diagnosis on HD, left LE wound Current Diet Renal Labs/Tests BUN 23 Cr 2.6 Pertinent Medications Reviewed Height 5 ft 7 in Weight 54.4 kg [place] Body Weight (kg) 67.27 BMI 18.8 Weight change and time frame Wt change noted. Pt was sitting up. Pt stated that after wt loss he normally weighed 120lb. Using previous wt. Subjective/Other Information F/U for stable PO and ONS intakes. Pt stated that appetite has been good and ate 100% of breakfast. Pt ate breakfast and lunch yesterday and a little bit of dinner due to too much spice. Pt is tolerating the nepro well. Percent of energy/protein needs met: 100%/100% Burn Absent Trauma Absent GI Symptoms None Current % PO Good (75-100%) Minimum of two criteria Yes Interpretation of Weight Loss (severe) >5% in 1 month Muscle Mass Moderate Depletion (severe) #2 Nutrition Diagnosis Malnutrition As Evidenced by Signs and Symptoms Pt consuming 100% of estimated enegry and protein needs. Diagnosis Progress(for reassessment Improved documentation) Is patient on ventilator? No Is Patient Ambulatory and/or Out of Bed Yes REE-([facility]-ambulatory/OOB) [ 3486.919 [id number]] Calculation Used for Recommendations [facility] Additional Notes PRO needs: 65-82g/day (1.2-1. 5g/kg) Fluid needs: 1L + urine output or MD order Nutrition Intervention Change Diet Order: Continue renal diet Add Supplement/Snack (indicate name/kcal [place] BID /protein ) Provides kCal: 850 Provides Protein (gm) 38 Goal #1 Pt will meet 80% of kcal needs via PO/ONS intake Anticipated Discharge Needs: renal diet Follow-Up By: 10/14/19 Additional Comments F/U for stable PO and ONS intakes
[2019-10-09] MEDS: TIOTROPIUM 18 MCG CAP INHALATION IH SCH ×2 (08:42→11:12)
[2019-10-09] MEDS: BUDESONIDE 0.5 MG/2 ML NEBU IH SCH ×2 (08:42→20:54)
--- NOTE | 2019-10-09 09:46 | Progress Note ---
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 Personally seen by myself for hyperkalemia in CKD few weeks ago. Previously on HD but stopped due to feeling poorly with HD. S/p first HD 10/05/19, tolerated well. Suspect progression of CKD to ESRD at this time. - plan to continue HD twice weekly for 2 hours; no indication for HD today, plan for HD on 10/10/2019 and continue Tu/Sa at minimum - will need outpatient dialysis placement, appreciate case management - avoid nephrotoxins - renally dose meds # Acidosis: off bicarb gtt currently; improved with HD # Left Foot Wound: wound care following, PT/OT # Anemia: may need ESAs with HD, will start with upcoming treatments # HTN: BP at goal, no UF for now as he is non-oliguric Subjective Date of service: 10/09/19 Interval history: No acute events noted. No issues noted with HD, but does not want to go for more than two hours. No cramping, no dizziness noted. No dyspnea, no chest pain. He is upset that food is cold at the hospital. Objective - Exam Narrative Exam: General: No acute distress, chronically ill appearing HEENT: NC/AT Neck: Supple Chest: Clear to auscultation Heart: Regular rate and rhythm, S1-S2 Abdomen: Soft nontender ss Dermatology: intact Extremity: no edema, has wound in the left lower extremity Musculoskeletal: No joint effusion noted in knee and ankle area Psych: No evidence of agitation and aggression noted Neurological: Alert awake, no focal deficits Back: No CVA tenderness - Vital Signs Vital signs: Vital Signs - 12hr 10/08/19 10/08/19 10/09/19 23:27 23:34 04:43 Temperature 98.7 F Pulse Rate 80 80 Pulse Rate [ Posterior Bilateral Throughout] Respiratory 20 Rate Respiratory Rate [Posterior Bilateral Throughout] Blood Pressure 146/73 146/73 143/77 10/09/19 08:43 Temperature Pulse Rate Pulse Rate [ 81 Posterior Bilateral Throughout] Respiratory Rate Respiratory 20 Rate [Posterior Bilateral Throughout] Blood Pressure - Lab 10/03/19 15:40 10/06/19 08:34 Most recent lab results Calcium 9.6 mg/dL (8.4-10.2) 10/06/19 08:34 Medications & Allergies - Medications Allergies/Adverse Reactions: Allergies albuterol [From Ventolin HFA] Allergy (Verified 10/02/19 12:39) Swelling amlodipine [From Norvasc] Allergy (Verified 10/02/19 12:42) Swelling captopril Allergy (Verified 10/02/19 12:38) Swelling carvedilol Allergy (Verified 10/02/19 12:58) Unknown ceftriaxone [From Rocephin] Allergy (Verified 10/02/19 12:43) Rash cephalexin Allergy (Verified 10/02/19 12:58) Rash clindamycin Allergy (Verified 10/02/19 12:55) Anaphylaxis fentanyl Allergy (Verified 10/02/19 12:55) Unknown guaifenesin Allergy (Verified 10/02/19 12:41) Swelling hydralazine Allergy (Verified 10/02/19 12:42) Swelling Iodinated Contrast Media Allergy (Verified 10/02/19 12:49) Unknown latex Allergy (Verified 10/02/19 12:48) Unknown levofloxacin Allergy (Verified 10/02/19 12:44) Rash lidocaine Allergy (Verified 10/02/19 12:38) Swelling nebivolol [From Bystolic] Allergy (Verified 10/02/19 12:43) Swelling nifedipine [From Nifedical XL] Allergy (Verified 10/02/19 12:48) Swelling nitrofurantoin Allergy (Verified 10/02/19 12:48) Unknown pseudoephedrine Allergy (Verified 10/02/19 12:41) Unknown Sulfa (Sulfonamide Antibiotics) Allergy (Verified 10/02/19 12:58) Unknown trimethoprim Allergy (Verified 10/02/19 12:58) Unknown Anesthetics - Amide Type Adverse Reaction (Verified 10/02/19 12:55) Nausea hydromorphone [From Dilaudid] Adverse Reaction (Verified 10/02/19 12:55) Unknown midazolam [From Versed] Adverse Reaction (Verified 10/02/19 12:55) Unknown propofol Adverse Reaction (Verified 10/02/19 12:55) Unknown Home Medications: Home Medications Medication Instructions Recorded Confirmed Last Taken Type Dutasteride 0.5 mg PO QDAY 10/03/19 10/03/19 Unknown History Flovent 220 MCG/PUFF HFA 220 mcg INHALATION QDAY 10/03/19 10/03/19 Unknown History Fluticasone [Flonase] 50 mcg INTRANASAL QDAY 10/03/19 10/03/19 Unknown History Furosemide [Lasix TAB] 40 mg PO DAILY PRN 10/03/19 10/03/19 Unknown History HYDROcodone/APAP 10-325 [[place] 10 mg PO Q6HR PRN 10/03/19 10/03/19 Unknown History 10-325 mg TAB] Ipratropium (Nf) [Atrovent HFA 17 mcg INHALATION Q6HR 10/03/19 10/03/19 Unknown History 17MCG/PUFF] Ipratropium (Nf) [Atrovent HFA 200 mg INHALATION QID PRN 10/03/19 10/03/19 Unk nown History 17MCG/PUFF] LORazepam [Lorazepam] 1 mg PO Q12HR PRN 10/03/19 10/03/19 Unknown History Loratadine 10 mg PO QDAY 10/03/19 10/03/19 Unknown History Metoprolol [Lopressor TAB] 50 mg PO TID 10/03/19 10/03/19 Unknown History Nicotine [Habitrol] 21 mg TD DAILY 10/03/19 10/03/19 Unknown History Ondansetron (Nf) [Zofran TAB] 8 mg PO PRN PRN 10/03/19 10/03/19 Unknown History Pantoprazole [Protonix TAB] 20 mg PO QDAY 10/03/19 10/03/19 Unknown History Pentoxifylline 400 mg PO BID 10/03/19 10/03/19 Unknown History Wendie-Emilia Rx Tablet 1 tab PO QDAY 10/03/19 10/03/19 Unknown History Terazosin HCl 10 mg PO QHS 10/03/19 10/03/19 Unknown History Tiotropium [place] [Spiriva] 18 mcg INHALATION QDAY 10/03/19 10/03/19 Unknown History cloNIDine [Catapres] 0.2 mg PO TID 10/03/19 10/03/19 Unknown History hydrOXYzine HCL [Atarax] 10 mg PO BID PRN 10/03/19 10/03/19 Unknown History Dutasteride 0.5 mg PO DAILY 10/04/19 10/04/19 Unknown History Active Medications: Generic Name Dose Route Start Last Admin Trade Name Freq PRN Reason Stop Dose Admin Acetaminophen/Hydrocodone Bitart 2 each 10/03/19 16:34 10/08/19 17:08 [place] 5/325 PO 2 each Q6H PRN Administration Pain, Moderate (4-6) Al Hydrox/Mg Hydrox/Simethicone 30 ml 10/04/19 13:19 10/04/19 13:38 Alum-Mag Hydrox-Simeth 549-947-75dr/5ml PO 30 ml Q4H PRN Administration Indigestion Alprazolam 0.5 mg 10/02/19 16:29 10/08/19 08:44 Xanax PO 0.5 mg Q8H PRN Administration Anxiety Aspirin 81 mg 10/06/19 10:00 10/08/19 11:32 Halfprin Ec PO Not Given QDAY MITZY Atorvastatin Calcium 10 mg 10/06/19 22:00 10/08/19 23:28 Atorvastatin PO 10 mg QHS MITZY Administration Budesonide 0.5 mg 10/03/19 20:00 10/09/19 08:42 Pulmicort IH Not Given Q12HRT MITZY Cetirizine HCl 10 mg 10/04/19 10:00 10/08/19 11:33 Cetirizine PO 10 mg DAILY MITZY Administration Clonidine HCl 0.2 mg 10/03/19 20:00 10/08/19 23:27 Catapres PO 0.2 mg TID MITZY Administration Fluticasone Propionate 50 mcg 10/04/19 10:00 10/08/19 11:30 Flonase NS 50 mcg QDAY MITZY Administration Hydrophilic Ointment 1 applic 10/07/19 19:39 10/07/19 23:32 Vaseline Lip Therapy TP 1 applic DIRECT PRN Administration Dry Lips Hydroxyzine HCl 10 mg 10/07/19 17:13 10/08/19 23:27 Atarax PO 10 mg TID PRN Administration Itching Sodium Chloride 100 mls @ 999 mls/hr 10/07/19 09:19 Nacl 0.9% IV TILA PRN Hypotension Lorazepam 1 mg 10/03/19 15:49 10/08/19 17:08 Ativan PO 1 mg Q12HR PRN Administration Anxiety Miscellaneous Medication 0.5 mg 10/04/19 22:00 10/08/19 11:32 Dutasteride [Dutasteride] PO 0.5 mg QDAY MITZY Administration Multivit/Ca Carb/B Cmplx/FA/Prenat 1 cap 10/04/19 10:00 10/08/19 11:33 Renal Caps PO 1 cap QDAY MITZY Administration Mupirocin 1 applic 10/07/19 22:00 10/08/19 23:26 Bactroban 2% NS 1 applic BID MITZY Administration Nicotine 21 mg 10/03/19 19:00 10/08/19 11:33 Habitrol TD 21 mg DAILY MITZY Administration Ondansetron HCl 8 mg 10/03/19 19:25 10/04/19 04:02 Zofran Odt PO 8 mg Q6H PRN Administration Nausea And Vomiting Pantoprazole Sodium 20 mg 10/04/19 10:00 10/08/19 11:33 Protonix PO 20 mg QDAY MITZY Administration Pentoxifylline 400 mg 10/03/19 22:00 10/08/19 23:28 Trental PO 400 mg BID MITZY Administration Prazosin HCl 5 mg 10/03/19 22:00 10/08/19 23:34 Prazosin PO 5 mg QHS MITZY Administration Tiotropium [place] 1 puff 10/04/19 10:00 10/09/19 08:42 Spiriva IH 1 puff QDAY MITZY Administration
[2019-10-09] MEDS: MUPIROCIN 2% OINT 22 GM NS SCH ×2 (09:50→23:02)
[2019-10-09] MEDS: HYDROcodone/ACETAMINOPHEN 5-325 MG TAB PO PRN ×2 (09:50→23:17)
[2019-10-09] MEDS: NICOTINE 21 MG/24 HR PATCH TD SCH (09:51)
[2019-10-09] MEDS: DUTASTERIDE 0.5 MG PO SCH (09:52)
[2019-10-09] MEDS: PANTOPRAZOLE 20 MG TAB PO SCH (09:52)
[2019-10-09] MEDS: FOLIC ACID/VIT B COMP W-C 1 MG (RENAL CAPS) PO SCH (09:52)
[2019-10-09] MEDS: CETIRIZINE 10 MG TAB PO SCH (09:52)
[2019-10-09] MEDS: FLUTICASONE PROPIONATE NASAL SPRAY 16 GM NS SCH (09:53)
[2019-10-09] MEDS: ALPRAZolam 0.5 MG TAB PO PRN ×2 (09:53→23:17)
[2019-10-09] MEDS: ASPIRIN EC 81 MG TAB PO SCH (09:53)
[2019-10-09] MEDS: PENTOXIFYLLINE ER 400 MG TAB PO SCH ×2 (09:54→23:02)
[2019-10-09] MEDS: cloNIDine 0.2 MG TAB PO SCH ×3 (09:54→20:10)
[2019-10-09] MEDS: LORazepam 1 MG TAB PO PRN (13:38)
--- NOTE | 2019-10-09 15:03 | Progress Note ---
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, nephrology following Case management set up outpatient HD schedule LLE chronic ulcer - Wound care consult, we will follow recommendation Acute blood loss symptomatic anemia from LE wound monitor h/H, transfused one unit Hold any heparin products COPD on home O2 - We'll continue supplemental O2 and nebs as needed HTN, stable - Continue home meds Anxiety -Xanax as needed Severe PCM - nutrition consult, nutritional supplement - scd fro DVt Px Disposition: Wait for PT eval and wound care recommendation, need outpt HD setup History Interval history: Patient seen and examined Patient is concerned about his dialysis Patient is on hemodialysis per schedule Outpatient HD chair is being processed by case management No new complaints Vital signs reviewed Hospitalist Physical - Constitutional Vitals: Temp Pulse Resp BP Pulse Ox 98.0 F 70 18 110/62 99 10/09/19 11:48 10/09/19 11:48 10/09/19 11:48 10/09/19 11:48 10/09/19 11:48 General appearance: Present: no acute distress, well-nourished - EENT Eyes: Present: PERRL, EOM intact - Neck Neck: Present: supple, normal ROM - Respiratory Respiratory effort: normal Respiratory: bilateral: diminished, negative: rales, rhonchi, wheezing - Cardiovascular Rhythm: regular Heart Sounds: Present: S1 & S2 - Extremities Extremities: no ischemia, No edema, abnormal (Dressing leg intact) - Abdominal General gastrointestinal: soft, non-tender, non-distended, normal bowel sounds - Integumentary Integumentary: Present: clear, warm - Psychiatric Psychiatric: appropriate mood/affect, cooperative - Neurologic Neurologic: moves all extremities Results - Labs CBC & Chem 7: 10/03/19 15:40 10/06/19 08:34 Labs: Laboratory Last Values WBC 10.8 K/mm3 (4.5-11.0) 10/03/19 15:40 RBC 2.68 M/mm3 (3.65-5.03) L 10/03/19 15:40 Hgb 7.9 gm/dl (11.8-15.2) L 10/03/19 15:40 Hct 24.1 % (35.5-45.6) L 10/03/19 15:40 MCV 90 fl (84-94) 10/03/19 15:40 MCH 30 pg (28-32) 10/03/19 15:40 MCHC 33 % (32-34) 10/03/19 15:40 RDW 15.8 % (13.2-15.2) H 10/03/19 15:40 Plt Count 224 K/mm3 (140-440) 10/03/19 15:40 Lymph % (Auto) 21.4 % (13.4-35.0) 10/02/19 12:47 George % (Auto) 5.3 % (0.0-7.3) 10/02/19 12:47 Eos % (Auto) 3.2 % (0.0-4.3) 10/02/19 12:47 Baso % (Auto) 0.5 % (0.0-1.8) 10/02/19 12:47 Lymph # 2.2 K/mm3 (1.2-5.4) 10/02/19 12:47 George # 0.6 K/mm3 (0.0-0.8) 10/02/19 12:47 Eos # 0.3 K/mm3 (0.0-0.4) 10/02/19 12:47 Baso # 0.1 K/mm3 (0.0-0.1) 10/02/19 12:47 Seg Neutrophils % 69.6 % (40.0-70.0) 10/02/19 12:47 Seg Neutrophils # 7.3 K/mm3 (1.8-7.7) 10/02/19 12:47 PT 16.2 Sec. (12.2-14.9) H 10/02/19 12:47 INR 1.28 (0.87-1.13) H 10/02/19 12:47 APTT 32.8 Sec. (24.2-36.6) 10/02/19 12:47 Sodium 141 mmol/L (137-145) 10/06/19 08:34 Potassium 3.7 mmol/L (3.6-5.0) 10/06/19 08:34 Chloride 107.4 mmol/L (98-107) H 10/06/19 08:34 Carbon Dioxide 23 mmol/L (22-30) D 10/06/19 08:34 Anion Gap 14 mmol/L 10/06/19 08:34 BUN 23 mg/dL (9-20) H 10/06/19 08:34 Creatinine 2.6 mg/dL (0.8-1.5) H 10/06/19 08:34 Estimated GFR 25 ml/min 10/06/19 08:34 BUN/Creatinine Ratio 9 % 10/06/19 08:34 Glucose 88 mg/dL (75-100) 10/06/19 08:34 Calcium 9.6 mg/dL (8.4-10.2) 10/06/19 08:34 Albumin 3.0 g/dL (3.9-5) L 10/05/19 10:47 Prealbumin 0.143 g/L (0.200-0.400) L 10/05/19 10:47 Hepatitis A IgM Ab Non-reactive (NonReactive) 10/05/19 10:47 Hep Bs Antigen Non-reactive (Negative) 10/05/19 10:47 Hep B Core IgM Ab Non-reactive (NonReactive) 10/05/19 10:47 Hepatitis C Antibody Reactive (NonReactive) A 10/05/19 10:47 Blood Type O NEGATIVE 10/02/19 15:52 Antibody Screen Positive 10/02/19 15:52 Antibody Identification Anti-Fya 10/02/19 15:52 Crossmatch See Detail 10/02/19 15:52 Active Medications - Current Medications Current Medications: Generic Name Dose Route Start Last Admin Trade Name Freq PRN Reason Stop Dose Admin Acetaminophen/Hydrocodone Bitart 2 each 10/03/19 16:34 10/09/19 09:50 [place] 5/325 PO 2 each Q6H PRN Administration Pain, Moderate (4-6) Al Hydrox/Mg Hydrox/Simethicone 30 ml 10/04/19 13:19 10/04/19 13:38 Alum-Mag Hydrox-Simeth 632-669-84kv/5ml PO 30 ml Q4H PRN Administration Indigestion Alprazolam 0.5 mg 10/02/19 16:29 10/09/19 09:53 Xanax PO 0.5 mg Q8H PRN Administration Anxiety Aspirin 81 mg 10/06/19 10:00 10/09/19 09:53 Halfprin Ec PO Not Given QDAY MITZY Atorvastatin Calcium 10 mg 10/06/19 22:00 10/08/19 23:28 Atorvastatin PO 10 mg QHS MITZY Administration Budesonide 0.5 mg 10/03/19 20:00 10/09/19 08:42 Pulmicort IH Not Given Q12HRT MITZY Cetirizine HCl 10 mg 10/04/19 10:00 10/09/19 09:52 Cetirizine PO 10 mg DAILY MITZY Administration Clonidine HCl 0.2 mg 10/03/19 20:00 10/09/19 09:54 Catapres PO 0.2 mg TID MITZY Administration Fluticasone Propionate 50 mcg 10/04/19 10:00 10/09/19 09:53 Flonase NS 50 mcg QDAY MITZY Administration Hydrophilic Ointment 1 applic 10/07/19 19:39 10/07/19 23:32 Vaseline Lip Therapy TP 1 applic DIRECT PRN Administration Dry Lips Hydroxyzine HCl 10 mg 10/07/19 17:13 10/08/19 23:27 Atarax PO 10 mg TID PRN Administration Itching Sodium Chloride 100 mls @ 999 mls/hr 10/07/19 09:19 Nacl 0.9% IV TILA PRN Hypotension Lorazepam 1 mg 10/03/19 15:49 10/09/19 13:38 Ativan PO 1 mg Q12HR PRN Administration Anxiety Miscellaneous Medication 0.5 mg 10/04/19 22:00 10/09/19 09:52 Dutasteride [Dutasteride] PO 0.5 mg QDAY MITZY Administration Multivit/Ca Carb/B Cmplx/FA/Prenat 1 cap 10/04/19 10:00 10/09/19 09:52 Renal Caps PO 1 cap QDAY MITZY Administration Mupirocin 1 applic 10/07/19 22:00 10/09/19 09:50 Bactroban 2% NS 1 applic BID MITZY Administration Nicotine 21 mg 10/03/19 19:00 10/09/19 09:51 Habitrol TD 21 mg DAILY MITZY Administration Ondansetron HCl 8 mg 10/03/19 19:25 10/04/19 04:02 Zofran Odt PO 8 mg Q6H PRN Administration Nausea And Vomiting Pantoprazole Sodium 20 mg 10/04/19 10:00 10/09/19 09:52 Protonix PO 20 mg QDAY MITZY Administration Pentoxifylline 400 mg 10/03/19 22:00 10/09/19 09:54 Trental PO 400 mg BID MITZY Administration Prazosin HCl 5 mg 10/03/19 22:00 10/08/19 23:34 Prazosin PO 5 mg QHS MITZY Administration Tiotropium [place] 1 puff 10/04/19 10:00 10/09/19 11:12 Spiriva IH Not Given QDAY MITZY Nutrition/Malnutrition Assess - Dietary Evaluation Nutrition/Malnutrition Findings: Nutrition Notes Start: 10/03/19 12:20 Freq: Status: Active Protocol: Document 10/07/19 11:55 PUMA (Rec: 10/07/19 12:04 [id number] [id number]) Co-Sign 10/07/19 11:55 LP Nutrition Notes Initial or Follow up Reassessment Current Diagnosis CKD (stage V CKD) Other Pertinent Diagnosis on HD, left LE wound Current Diet Renal Labs/Tests BUN 23 Cr 2.6 Pertinent Medications Reviewed Height 5 ft 7 in Weight 54.4 kg [place] Body Weight (kg) 67.27 BMI 18.8 Weight change and time frame Wt change noted. Pt was sitting up. Pt stated that after wt loss he normally weighed 120lb. Using previous wt. Subjective/Other Information F/U for stable PO and ONS intakes. Pt stated that appetite has been good and ate 100% of breakfast. Pt ate breakfast and lunch yesterday and a little bit of dinner due to too much spice. Pt is tolerating the nepro well. Percent of energy/protein needs met: 100%/100% Burn Absent Trauma Absent GI Symptoms None Current % PO Good (75-100%) Minimum of two criteria Yes Interpretation of Weight Loss (severe) >5% in 1 month Muscle Mass Moderate Depletion (severe) #2 Nutrition Diagnosis Malnutrition As Evidenced by Signs and Symptoms Pt consuming 100% of estimated enegry and protein needs. Diagnosis Progress(for reassessment Improved documentation) Is patient on ventilator? No Is Patient Ambulatory and/or Out of Bed Yes REE-([facility]-ambulatory/OOB) [ 5556.919 NUTR.MSJOOB] Calculation Used for Recommendations [place] Additional Notes PRO needs: 65-82g/day (1.2-1. 5g/kg) Fluid needs: 1L + urine output or MD order Nutrition Intervention Change Diet Order: Continue renal diet Add Supplement/Snack (indicate name/kcal Nepro BID /protein ) Provides kCal: 850 Provides Protein (gm) 38 Goal #1 Pt will meet 80% of kcal needs via PO/ONS intake Anticipated Discharge Needs: renal diet Follow-Up By: 10/14/19 Additional Comments F/U for stable PO and ONS intakes
[2019-10-09] MEDS: hydrOXYzine HCL 10 MG TAB PO PRN (17:32)
[2019-10-09] MEDS: HEPARIN 5,000 UNIT/1 ML VIAL SUB-Q SCH (23:02)
[2019-10-09] MEDS: PRAZOSIN 1 MG CAP PO SCH (23:16)
[2019-10-10] MEDS: cloNIDine 0.2 MG TAB PO SCH ×4 (01:07→21:15)
[2019-10-10] MEDS: PRAZOSIN 1 MG CAP PO SCH (01:11)
[2019-10-10] MEDS: hydrOXYzine HCL 10 MG TAB PO PRN ×3 (01:14→17:19)
[2019-10-10] MEDS: LORazepam 1 MG TAB PO PRN (04:23)
--- NOTE | 2019-10-10 08:44 | Progress Note ---
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, nephrology following Case management set up outpatient HD schedule LLE chronic ulcer - Wound care consult, we will follow recommendation Acute blood loss symptomatic anemia from LE wound monitor h/H, transfused one unit Hold any heparin products COPD on home O2 - We'll continue supplemental O2 and nebs as needed HTN, stable - Continue home meds Anxiety -Xanax as needed Severe PCM - nutrition consult, nutritional supplement - scd fro DVt Px History Interval history: Patient has no new complaints Vital signs stable Hospitalist Physical - Constitutional Vitals: Temp Pulse Resp BP Pulse Ox 98.4 F 74 18 145/71 99 10/10/19 00:53 10/10/19 01:11 10/10/19 00:53 10/10/19 01:11 10/10/19 00:53 General appearance: Present: no acute distress, well-nourished - EENT Eyes: Present: PERRL, EOM intact - Neck Neck: Present: supple, normal ROM - Respiratory Respiratory effort: normal Respiratory: bilateral: diminished, negative: rales, rhonchi, wheezing - Cardiovascular Rhythm: regular Heart Sounds: Present: S1 & S2 - Extremities Extremities: no ischemia, No edema - Abdominal General gastrointestinal: soft, non-tender, non-distended, normal bowel sounds - Integumentary Integumentary: Present: clear, warm - Psychiatric Psychiatric: appropriate mood/affect, cooperative - Neurologic Neurologic: CNII-XII intact, moves all extremities Results - Labs CBC & Chem 7: 10/03/19 15:40 10/06/19 08:34 Labs: Laboratory Last Values WBC 10.8 K/mm3 (4.5-11.0) 10/03/19 15:40 RBC 2.68 M/mm3 (3.65-5.03) L 10/03/19 15:40 Hgb 7.9 gm/dl (11.8-15.2) L 10/03/19 15:40 Hct 24.1 % (35.5-45.6) L 10/03/19 15:40 MCV 90 fl (84-94) 10/03/19 15:40 MCH 30 pg (28-32) 10/03/19 15:40 MCHC 33 % (32-34) 10/03/19 15:40 RDW 15.8 % (13.2-15.2) H 10/03/19 15:40 Plt Count 224 K/mm3 (140-440) 10/03/19 15:40 Lymph % (Auto) 21.4 % (13.4-35.0) 10/02/19 12:47 Rich % (Auto) 5.3 % (0.0-7.3) 10/02/19 12:47 Eos % (Auto) 3.2 % (0.0-4.3) 10/02/19 12:47 Baso % (Auto) 0.5 % (0.0-1.8) 10/02/19 12:47 Lymph # 2.2 K/mm3 (1.2-5.4) 10/02/19 12:47 Rich # 0.6 K/mm3 (0.0-0.8) 10/02/19 12:47 Eos # 0.3 K/mm3 (0.0-0.4) 10/02/19 12:47 Baso # 0.1 K/mm3 (0.0-0.1) 10/02/19 12:47 Seg Neutrophils % 69.6 % (40.0-70.0) 10/02/19 12:47 Seg Neutrophils # 7.3 K/mm3 (1.8-7.7) 10/02/19 12:47 PT 16.2 Sec. (12.2-14.9) H 10/02/19 12:47 INR 1.28 (0.87-1.13) H 10/02/19 12:47 APTT 32.8 Sec. (24.2-36.6) 10/02/19 12:47 Sodium 141 mmol/L (137-145) 10/06/19 08:34 Potassium 3.7 mmol/L (3.6-5.0) 10/06/19 08:34 Chloride 107.4 mmol/L (98-107) H 10/06/19 08:34 Carbon Dioxide 23 mmol/L (22-30) D 10/06/19 08:34 Anion Gap 14 mmol/L 10/06/19 08:34 BUN 23 mg/dL (9-20) H 10/06/19 08:34 Creatinine 2.6 mg/dL (0.8-1.5) H 10/06/19 08:34 Estimated GFR 25 ml/min 10/06/19 08:34 BUN/Creatinine Ratio 9 % 10/06/19 08:34 Glucose 88 mg/dL (75-100) 10/06/19 08:34 Calcium 9.6 mg/dL (8.4-10.2) 10/06/19 08:34 Albumin 3.0 g/dL (3.9-5) L 10/05/19 10:47 Prealbumin 0.143 g/L (0.200-0.400) L 10/05/19 10:47 Hepatitis A IgM Ab Non-reactive (NonReactive) 10/05/19 10:47 Hep Bs Antigen Non-reactive (Negative) 10/05/19 10:47 Hep B Core IgM Ab Non-reactive (NonReactive) 10/05/19 10:47 Hepatitis C Antibody Reactive (NonReactive) A 10/05/19 10:47 Blood Type O NEGATIVE 10/02/19 15:52 Antibody Screen Positive 10/02/19 15:52 Antibody Identification Anti-Fya 10/02/19 15:52 Crossmatch See Detail 10/02/19 15:52 Active Medications - Current Medications Current Medications: Generic Name Dose Route Start Last Admin Trade Name Freq PRN Reason Stop Dose Admin Acetaminophen/Hydrocodone Bitart 2 each 10/03/19 16:34 10/09/19 23:17 [place] 5/325 PO 2 each Q6H PRN Administration Pain, Moderate (4-6) Al Hydrox/Mg Hydrox/Simethicone 30 ml 10/04/19 13:19 10/04/19 13:38 Alum-Mag Hydrox-Simeth 824-676-71gn/5ml PO 30 ml Q4H PRN Administration Indigestion Alprazolam 0.5 mg 10/02/19 16:29 10/09/19 23:17 Xanax PO 0.5 mg Q8H PRN Administration Anxiety Aspirin 81 mg 10/06/19 10:00 10/09/19 09:53 Halfprin Ec PO Not Given QDAY MITZY Budesonide 0.5 mg 10/03/19 20:00 10/09/19 20:54 Pulmicort IH 0.5 mg Q12HRT MITZY Administration Cetirizine HCl 10 mg 10/04/19 10:00 10/09/19 09:52 Cetirizine PO 10 mg DAILY MITZY Administration Clonidine HCl 0.2 mg 10/03/19 20:00 10/10/19 01:07 Catapres PO 0.2 mg TID MITZY Administration Fluticasone Propionate 50 mcg 10/04/19 10:00 10/09/19 09:53 Flonase NS 50 mcg QDAY MITZY Administration Heparin Sodium (Porcine) 5,000 unit 10/09/19 22:00 10/09/19 23:02 Heparin SUB-Q 5,000 unit Q12HR MITZY Administration Hydrophilic Ointment 1 applic 10/07/19 19:39 10/07/19 23:32 Vaseline Lip Therapy TP 1 applic DIRECT PRN Administration Dry Lips Hydroxyzine HCl 10 mg 10/07/19 17:13 10/10/19 01:14 Atarax PO 10 mg TID PRN Administration Itching Sodium Chloride 100 mls @ 999 mls/hr 10/07/19 09:19 Nacl 0.9% IV TILA PRN Hypotension Lorazepam 1 mg 10/03/19 15:49 10/10/19 04:23 Ativan PO 1 mg Q12HR PRN Administration Anxiety Miscellaneous Medication 0.5 mg 10/04/19 22:00 10/09/19 09:52 Dutasteride [Dutasteride] PO 0.5 mg QDAY MITZY Administration Multivit/Ca Carb/B Cmplx/FA/Prenat 1 cap 10/04/19 10:00 10/09/19 09:52 Renal Caps PO 1 cap QDAY MITZY Administration Mupirocin 1 applic 10/07/19 22:00 10/09/19 23:02 Bactroban 2% NS 1 applic BID MITZY Administration Nicotine 21 mg 10/03/19 19:00 10/09/19 09:51 Habitrol TD 21 mg DAILY MITZY Administration Ondansetron HCl 8 mg 10/03/19 19:25 10/04/19 04:02 Zofran Odt PO 8 mg Q6H PRN Administration Nausea And Vomiting Pantoprazole Sodium 20 mg 10/04/19 10:00 10/09/19 09:52 Protonix PO 20 mg QDAY MITZY Administration Pentoxifylline 400 mg 10/03/19 22:00 10/09/19 23:02 Trental PO 400 mg BID MITZY Administration Prazosin HCl 5 mg 10/09/19 23:00 10/10/19 01:11 Prazosin PO Not Given QHS MITZY Tiotropium [place] 1 puff 10/04/19 10:00 10/09/19 11:12 Spiriva IH Not Given QDAY MITZY Nutrition/Malnutrition Assess - Dietary Evaluation Nutrition/Malnutrition Findings: Nutrition Notes Start: 10/03/19 12: 20 Freq: Status: Active Protocol: Document 10/07/19 11:55 PUMA (Rec: 10/07/19 12:04 PUMA [id number]) Co-Sign 10/07/19 11:55 LP Nutrition Notes Initial or Follow up Reassessment Current Diagnosis CKD (stage V CKD) Other Pertinent Diagnosis on HD, left LE wound Current Diet Renal Labs/Tests BUN 23 Cr 2.6 Pertinent Medications Reviewed Height 5 ft 7 in Weight 54.4 kg [place] Body Weight (kg) 67.27 BMI 18.8 Weight change and time frame Wt change noted. Pt was sitting up. Pt stated that after wt loss he normally weighed 120lb. Using previous wt. Subjective/Other Information F/U for stable PO and ONS intakes. Pt stated that appetite has been good and ate 100% of breakfast. Pt ate breakfast and lunch yesterday and a little bit of dinner due to too much spice. Pt is tolerating the nepro well. Percent of energy/protein needs met: 100%/100% Burn Absent Trauma Absent GI Symptoms None Current % PO Good (75-100%) Minimum of two criteria Yes Interpretation of Weight Loss (severe) >5% in 1 month Muscle Mass Moderate Depletion (severe) #2 Nutrition Diagnosis Malnutrition As Evidenced by Signs and Symptoms Pt consuming 100% of estimated enegry and protein needs. Diagnosis Progress(for reassessment Improved documentation) Is patient on ventilator? No Is Patient Ambulatory and/or Out of Bed Yes REE-([facility]. Jeor-ambulatory/OOB) [ 1686.919 NUTR.MSJOOB] [facility] Additional Notes PRO needs: 65-82g/day (1.2-1. 5g/kg) Fluid needs: 1L + urine output or MD order Nutrition Intervention Change Diet Order: Continue renal diet Add Supplement/Snack (indicate name/kcal Nepro BID /protein ) Provides kCal: 850 Provides Protein (gm) 38 Goal #1 Pt will meet 80% of kcal needs via PO/ONS intake Anticipated Discharge Needs: renal diet Follow-Up By: 10/14/19 Additional Comments F/U for stable PO and ONS intakes
[2019-10-10] MEDS: TIOTROPIUM 18 MCG CAP INHALATION IH SCH (09:59)
[2019-10-10] MEDS: BUDESONIDE 0.5 MG/2 ML NEBU IH SCH ×2 (09:59→20:27)
[2019-10-10] MEDS: ASPIRIN EC 81 MG TAB PO SCH (10:17)
[2019-10-10] MEDS: HEPARIN 5,000 UNIT/1 ML VIAL SUB-Q SCH ×3 (10:18→21:15)
[2019-10-10] MEDS: MUPIROCIN 2% OINT 22 GM NS SCH ×2 (10:21→21:14)
[2019-10-10] MEDS: FLUTICASONE PROPIONATE NASAL SPRAY 16 GM NS SCH (10:21)
[2019-10-10] MEDS: LIP THERAPY VASELINE TP PRN (10:22)
[2019-10-10] MEDS: DUTASTERIDE 0.5 MG PO SCH (10:22)
[2019-10-10] MEDS: PENTOXIFYLLINE ER 400 MG TAB PO SCH ×2 (10:23→21:15)
[2019-10-10] MEDS: FOLIC ACID/VIT B COMP W-C 1 MG (RENAL CAPS) PO SCH (10:25)
[2019-10-10] MEDS: NICOTINE 21 MG/24 HR PATCH TD SCH (10:25)
[2019-10-10] MEDS: CETIRIZINE 10 MG TAB PO SCH (10:26)
[2019-10-10] MEDS: PANTOPRAZOLE 20 MG TAB PO SCH (10:27)
[2019-10-10] MEDS: HYDROcodone/ACETAMINOPHEN 5-325 MG TAB PO PRN ×2 (11:05→21:15)
[2019-10-10] MEDS: ALPRAZolam 0.5 MG TAB PO PRN ×2 (11:05→21:15)
--- NOTE | 2019-10-10 12:51 | Progress Note ---
Assessment and Plan # End stage renal disease. It appears that patient has progressed from stage V CKD to ESRD . Previously on HD but stopped due to feeling poorly with HD. S/p first HD 10/05/19, tolerated well. - plan to continue HD twice weekly for 3 hours; - Outpatient dialysis has been arranged at [facility] starting from next Saturday - avoid nephrotoxins - renally dose meds # Acidosis: off bicarb gtt currently; resolved # Left Foot Wound: wound care following, PT/OT # Anemia: may need ESAs with HD, will start with upcoming treatments # HTN: BP at goal, no UF for now as he is non-oliguric No objection to discharge from renal standpoint Subjective Date of service: 10/10/19 Interval history: Patient is comfortable. Dialysis is being initiated. Denies any shortness of breath. Objective - Vital Signs Vital signs: Vital Signs - 12hr 10/10/19 10/10/19 10/10/19 00:53 01:07 01:11 Temperature 98.4 F Pulse Rate 74 74 74 Respiratory 18 Rate Blood Pressure 145/71 145/71 145/71 O2 Sat by Pulse 99 Oximetry - General Appearance General appearance: well-developed, well-nourished, appears stated age EENT: PERRL, mucous membranes moist Neck: no JVD, no thyromegaly, no carotid bruit, supple Respiratory: Present: Clear to Ascultation Cardiology: regular, normal heart rate, S1S2, no murmurs Gastrointestinal: normal, normoactive bowel sounds Integumentary: no rash, other (AV fistula in his left upper arm. Left leg wrapped with bandage) - Lab 10/03/19 15:40 10/06/19 08:34 Most recent lab results Calcium 9.6 mg/dL (8.4-10.2) 10/06/19 08:34 Medications & Allergies - Medications Allergies/Adverse Reactions: Allergies albuterol [From Ventolin HFA] Allergy (Verified 10/02/19 12:39) Swelling amlodipine [From Norvasc] Allergy (Verified 10/02/19 12:42) Swelling captopril Allergy (Verified 10/02/19 12:38) Swelling carvedilol Allergy (Verified 10/02/19 12:58) Unknown ceftriaxone [From Rocephin] Allergy (Verified 10/02/19 12:43) Rash cephalexin Allergy (Verified 10/02/19 12:58) Rash clindamycin Allergy (Verified 10/02/19 12:55) Anaphylaxis fentanyl Allergy (Verified 10/02/19 12:55) Unknown guaifenesin Allergy (Verified 10/02/19 12:41) Swelling hydralazine Allergy (Verified 10/02/19 12:42) Swelling Iodinated Contrast Media Allergy (Verified 10/02/19 12:49) Unknown latex Allergy (Verified 10/02/19 12:48) Unknown levofloxacin Allergy (Verified 10/02/19 12:44) Rash lidocaine Allergy (Verified 10/02/19 12:38) Swelling nebivolol [From Bystolic] Allergy (Verified 10/02/19 12:43) Swelling nifedipine [From Nifedical XL] Allergy (Verified 10/02/19 12:48) Swelling nitrofurantoin Allergy (Verified 10/02/19 12:48) Unknown pseudoephedrine Allergy (Verified 10/02/19 12:41) Unknown Sulfa (Sulfonamide Antibiotics) Allergy (Verified 10/02/19 12:58) Unknown trimethoprim Allergy (Verified 10/02/19 12:58) Unknown Anesthetics - Amide Type Adverse Reaction (Verified 10/02/19 12:55) Nausea hydromorphone [From Dilaudid] Adverse Reaction (Verified 10/02/19 12:55) Unknown midazolam [From Versed] Adverse Reaction (Verified 10/02/19 12:55) Unknown propofol Adverse Reaction (Verified 10/02/19 12:55) Unknown Home Medications: Home Medications Medication Instructions Recorded Confirmed Last Taken Type Dutasteride 0.5 mg PO QDAY 10/03/19 10/03/19 Unknown History Flovent 220 MCG/PUFF HFA 220 mcg INHALATION QDAY 10/03/19 10/03/19 Unknown History Fluticasone [Flonase] 50 mcg INTRANASAL QDAY 10/03/19 10/03/19 Unknown History Furosemide [Lasix TAB] 40 mg PO DAILY PRN 10/03/19 10/03/19 Unknown History HYDROcodone/APAP 10-325 [[place] 10 mg PO Q6HR PRN 10/03/19 10/03/19 Unknown History 10-325 mg TAB] Ipratropium (Nf) [Atrovent HFA 17 mcg INHALATION Q6HR 10/03/19 10/03/19 Unknown History 17MCG/PUFF] Ipratropium (Nf) [Atrovent HFA 200 mg INHALATION QID PRN 10/03/19 10/03/19 Unkno wn History 17MCG/PUFF] LORazepam [Lorazepam] 1 mg PO Q12HR PRN 10/03/19 10/03/19 Unknown History Loratadine 10 mg PO QDAY 10/03/19 10/03/19 Unknown History Metoprolol [Lopressor TAB] 50 mg PO TID 10/03/19 10/03/19 Unknown History Nicotine [Habitrol] 21 mg TD DAILY 10/03/19 10/03/19 Unknown History Ondansetron (Nf) [Zofran TAB] 8 mg PO PRN PRN 10/03/19 10/03/19 Unknown History Pantoprazole [Protonix TAB] 20 mg PO QDAY 10/03/19 10/03/19 Unknown History Pentoxifylline 400 mg PO BID 10/03/19 10/03/19 Unknown History Wendie-Emilia Rx Tablet 1 tab PO QDAY 10/03/19 10/03/19 Unknown History Terazosin HCl 10 mg PO QHS 10/03/19 10/03/19 Unknown History Tiotropium [place] [Spiriva] 18 mcg INHALATION QDAY 10/03/19 10/03/19 Unknown History cloNIDine [Catapres] 0.2 mg PO TID 10/03/19 10/03/19 Unknown History hydrOXYzine HCL [Atarax] 10 mg PO BID PRN 10/03/19 10/03/19 Unknown History Dutasteride 0.5 mg PO DAILY 10/04/19 10/04/19 Unknown History Active Medications: Generic Name Dose Route Start Last Admin Trade Name Freq PRN Reason Stop Dose Admin Acetaminophen/Hydrocodone Bitart 2 each 10/03/19 16:34 10/10/19 11:05 [place] 5/325 PO 2 each Q6H PRN Administration Pain, Moderate (4-6) Al Hydrox/Mg Hydrox/Simethicone 30 ml 10/04/19 13:19 10/04/19 13:38 Alum-Mag Hydrox-Simeth 777-175-41yr/5ml PO 30 ml Q4H PRN Administration Indigestion Alprazolam 0.5 mg 10/02/19 16:29 10/10/19 11:05 Xanax PO 0.5 mg Q8H PRN Administration Anxiety Aspirin 81 mg 10/06/19 10:00 10/10/19 10:17 Halfprin Ec PO Not Given QDAY MITZY Budesonide 0.5 mg 10/03/19 20:00 10/10/19 09:59 Pulmicort IH Not Given Q12HRT MITZY Cetirizine HCl 10 mg 10/04/19 10:00 10/10/19 10:26 Cetirizine PO 10 mg DAILY MITZY Administration Clonidine HCl 0.2 mg 10/03/19 20:00 10/10/19 08:00 Catapres PO 0.2 mg TID MITZY Administration Fluticasone Propionate 50 mcg 10/04/19 10:00 10/10/19 10:21 Flonase NS 50 mcg QDAY MITZY Administration Heparin Sodium (Porcine) 5,000 unit 10/09/19 22:00 10/10/19 10:37 Heparin SUB-Q 5,000 unit Q12HR MITZY Administration Hydrophilic Ointment 1 applic 10/07/19 19:39 10/10/19 10:22 Vaseline Lip Therapy TP 1 applic DIRECT PRN Administration Dry Lips Hydroxyzine HCl 10 mg 10/07/19 17:13 10/10/19 10:24 Atarax PO 10 mg TID PRN Administration Itching Sodium Chloride 100 mls @ 999 mls/hr 10/07/19 09:19 Nacl 0.9% IV TILA PRN Hypotension Lorazepam 1 mg 10/03/19 15:49 10/10/19 04:23 Ativan PO 1 mg Q12HR PRN Administration Anxiety Miscellaneous Medication 0.5 mg 10/04/19 22:00 10/10/19 10:22 Dutasteride [Dutasteride] PO 0.5 mg QDAY MITZY Administration Multivit/Ca Carb/B Cmplx/FA/Prenat 1 cap 10/04/19 10:00 10/10/19 10:25 Renal Caps PO 1 cap QDAY MITZY Administration Mupirocin 1 applic 10/07/19 22:00 10/10/19 10:21 Bactroban 2% NS 1 applic BID MITZY Administration Nicotine 21 mg 10/03/19 19:00 10/10/19 10:25 Habitrol TD 21 mg DAILY MITZY Administration Ondansetron HCl 8 mg 10/03/19 19:25 10/04/19 04:02 Zofran Odt PO 8 mg Q6H PRN Administration Nausea And Vomiting Pantoprazole Sodium 20 mg 10/04/19 10:00 10/10/19 10:27 Protonix PO 20 mg QDAY MITZY Administration Pentoxifylline 400 mg 10/03/19 22:00 10/10/19 10:23 Trental PO 400 mg BID MITZY Administration Tiotropium [place] 1 puff 10/04/19 10:00 10/10/19 09:59 Spiriva IH 1 puff QDAY MITZY Administration
[2019-10-10] MEDS: PRAZOSIN 5 MG CAP PO SCH (19:52)
[2019-10-11] MEDS: hydrOXYzine HCL 10 MG TAB PO PRN ×2 (01:21→10:10)
[2019-10-11 06:19] VITALS: BP 157/73
[2019-10-11] MEDS: cloNIDine 0.2 MG TAB PO SCH (08:00)
[2019-10-11] MEDS: BUDESONIDE 0.5 MG/2 ML NEBU IH SCH (08:14)
[2019-10-11] MEDS: TIOTROPIUM 18 MCG CAP INHALATION IH SCH (09:04)
[2019-10-11] MEDS: ASPIRIN EC 81 MG TAB PO SCH (10:03)
[2019-10-11] MEDS: FLUTICASONE PROPIONATE NASAL SPRAY 16 GM NS SCH (10:06)
[2019-10-11] MEDS: LIP THERAPY VASELINE TP PRN (10:07)
[2019-10-11] MEDS: MUPIROCIN 2% OINT 22 GM NS SCH (10:07)
[2019-10-11] MEDS: HYDROcodone/ACETAMINOPHEN 5-325 MG TAB PO PRN (10:08)
[2019-10-11] MEDS: FOLIC ACID/VIT B COMP W-C 1 MG (RENAL CAPS) PO SCH (10:09)
[2019-10-11] MEDS: CETIRIZINE 10 MG TAB PO SCH (10:09)
[2019-10-11] MEDS: NICOTINE 21 MG/24 HR PATCH TD SCH (10:09)
[2019-10-11] MEDS: PENTOXIFYLLINE ER 400 MG TAB PO SCH (10:09)
[2019-10-11] MEDS: HEPARIN 5,000 UNIT/1 ML VIAL SUB-Q SCH (10:11)
[2019-10-11] MEDS: PANTOPRAZOLE 20 MG TAB PO SCH (10:11)
[2019-10-11] MEDS: DUTASTERIDE 0.5 MG PO SCH (10:11)
--- NOTE | 2019-10-11 11:30 | Discharge Summary ---
Providers - Providers Date of Admission: 10/03/19 14:00 Date of discharge: 10/11/19 Attending physician: DIANA FOSTER 10/02/19 12:22 Consult to Wound/ET Nurse [CONS] Urgent Reason For Exam: wound eval 10/02/19 16:31 Consult to Physician [CONS] Routine Comment: Consulting Provider: EITAN MCBRIDE Physician Instructions: Reason For Exam: CKD 10/03/19 02:45 Consult to Dietitian/Nutrition [CONS] Routine Physician Instructions: Reason For Exam: Reason for Consult: Poor oral intake 10/03/19 15:57 Physical Therapy Evaluation and Treat [CONS] Routine Comment: Reason For Exam: placement Primary care physician: RETAIL PHARMACIST Hospitalization Condition: Stable Hospital course: Discharge diagnoses; MRSA Nares positive: Contact isolation Mupirosin nasal cream Chronic respiratory failure with home o2 - Due to COPD, continue supportive care and supplemental O2 PVD s/p stent placement - Continue antiplatelets and statin 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, nephrology following Case management set up outpatient HD schedule LLE chronic ulcer - Wound care consult, we will follow recommendation Acute blood loss symptomatic anemia from LE wound monitor h/H, transfused one unit Hold any heparin products COPD on home O2 - We'll continue supplemental O2 and nebs as needed HTN, stable - Continue home meds Anxiety -Xanax as needed Severe PCM - nutrition consult, nutritional supplement Disposition: [id number] HOME UNDER HOME HL Time spent for discharge: 32 min Core Measure Documentation - Palliative Care Palliative Care/ Comfort Measures: Not Applicable Exam - Constitutional Vitals: Temp Pulse Resp BP Pulse Ox 97.3 F L 63 18 157/73 98 10/11/19 04:23 10/11/19 04:23 10/11/19 04:23 10/11/19 04:23 10/11/19 04:23 Plan Activity: fall precautions Diet: renal Special Instructions: smoking cessation Additional Instructions: f/u HD schedule per schedule 6am. Cm informed the patient that he needs to go to the Dialysis center on Saturday to complete his paper work. Outpatient wound clinic per scheduled Follow up with: FREDY CURTIS DO [Staff Physician] - 2-3 Days MICHELLE ENGLAND MD [Staff Physician] - 2-3 Days PADDY KHAN MD [Staff Physician] - 2-3 Days EITAN MCBRIDE MD [Staff Physician] - 7 Days Prescriptions: Mupirocin [Bactroban 2% OINT] 1 applic NS BID #1 tube
--- NOTE | 2019-10-11 12:48 | Progress Note ---
Assessment and Plan # End stage renal disease. It appears that patient has progressed from stage V CKD to ESRD . Previously on HD but stopped due to feeling poorly with HD. S/p first HD 10/05/19, tolerated well. - plan to continue HD twice weekly for 3 hours; - Outpatient dialysis has been arranged at [facility] starting from next Saturday - avoid nephrotoxins - renally dose meds # Acidosis: off bicarb gtt currently; resolved # Left Foot Wound: wound care following, PT/OT # Anemia: Continue Epogen per protocol # HTN: BP at goal, no UF for now as he is non-oliguric No objection to discharge from renal standpoint Subjective Date of service: 10/11/19 Interval history: Patient is comfortable. Uneventful hemodialysis yesterday. Denies any shortness of breath. Objective - Vital Signs Vital signs: Vital Signs - 12hr 10/11/19 04:23 Temperature 97.3 F L Pulse Rate 63 Respiratory 18 Rate Blood Pressure 157/73 O2 Sat by Pulse 98 Oximetry - General Appearance General appearance: well-developed, well-nourished, appears stated age EENT: PERRL, mucous membranes moist Neck: no JVD, no thyromegaly, no carotid bruit, supple Respiratory: Present: Clear to Ascultation Cardiology: regular, normal heart rate, S1S2, no murmurs Gastrointestinal: normal, normoactive bowel sounds Integumentary: other (AV fistula in his left upper arm. Good bruit and thrill. Left leg wrapped with bandage) - Lab 10/03/19 15:40 10/06/19 08:34 Most recent lab results Calcium 9.6 mg/dL (8.4-10.2) 10/06/19 08:34 Medications & Allergies - Medications Allergies/Adverse Reactions: Allergies albuterol [From Ventolin HFA] Allergy (Verified 10/02/19 12:39) Swelling amlodipine [From Norvasc] Allergy (Verified 10/02/19 12:42) Swelling captopril Allergy (Verified 10/02/19 12:38) Swelling carvedilol Allergy (Verified 10/02/19 12:58) Unknown ceftriaxone [From Rocephin] Allergy (Verified 10/02/19 12:43) Rash cephalexin Allergy (Verified 10/02/19 12:58) Rash clindamycin Allergy (Verified 10/02/19 12:55) Anaphylaxis fentanyl Allergy (Verified 10/02/19 12:55) Unknown guaifenesin Allergy (Verified 10/02/19 12:41) Swelling hydralazine Allergy (Verified 10/02/19 12:42) Swelling Iodinated Contrast Media Allergy (Verified 10/02/19 12:49) Unknown latex Allergy (Verified 10/02/19 12:48) Unknown levofloxacin Allergy (Verified 10/02/19 12:44) Rash lidocaine Allergy (Verified 10/02/19 12:38) Swelling nebivolol [From Bystolic] Allergy (Verified 10/02/19 12:43) Swelling nifedipine [From Nifedical XL] Allergy (Verified 10/02/19 12:48) Swelling nitrofurantoin Allergy (Verified 10/02/19 12:48) Unknown pseudoephedrine Allergy (Verified 10/02/19 12:41) Unknown Sulfa (Sulfonamide Antibiotics) Allergy (Verified 10/02/19 12:58) Unknown trimethoprim Allergy (Verified 10/02/19 12:58) Unknown Anesthetics - Amide Type Adverse Reaction (Verified 10/02/19 12:55) Nausea hydromorphone [From Dilaudid] Adverse Reaction (Verified 10/02/19 12:55) Unknown midazolam [From Versed] Adverse Reaction (Verified 10/02/19 12:55) Unknown propofol Adverse Reaction (Verified 10/02/19 12:55) Unknown Home Medications: Home Medications Medication Instructions Recorded Confirmed Last Taken Type Dutasteride 0.5 mg PO QDAY 10/03/19 10/03/19 Unknown History Flovent 220 MCG/PUFF HFA 220 mcg INHALATION QDAY 10/03/19 10/03/19 Unknown History Fluticasone [Flonase] 50 mcg INTRANASAL QDAY 10/03/19 10/03/19 Unknown History Furosemide [Lasix TAB] 40 mg PO DAILY PRN 10/03/19 10/03/19 Unknown History HYDROcodone/APAP 10-325 [Temple 10 mg PO Q6HR PRN 10/03/19 10/03/19 Unknown History 10-325 mg TAB] Ipratropium (Nf) [Atrovent HFA 17 mcg INHALATION Q6HR 10/03/19 10/03/19 Unknown History 17MCG/PUFF] LORazepam [Lorazepam] 1 mg PO Q12HR PRN 10/03/19 10/03/19 Unknown History Loratadine 10 mg PO QDAY 10/03/19 10/03/19 Unknown History Metoprolol [Lopressor TAB] 50 mg PO TID 10/03/19 10/03/19 Unknown History Nicotine [Habitrol] 21 mg TD DAILY 10/03/19 10/03/19 Unknown History Ondansetron (Nf) [Zofran TAB] 8 mg PO PRN PRN 10/03/19 10/03/19 Unknown History Pantoprazole [Protonix TAB] 20 mg PO QDAY 10/03/19 10/03/19 Unknown History Pentoxifylline 400 mg PO BID 10/03/19 10/03/19 Unknown History Wendie-Emilia Rx Tablet 1 tab PO QDAY 10/03/19 10/03/19 Unknown History Terazosin HCl 10 mg PO QHS 10/03/19 10/03/19 Unknown History Tiotropium Hollister [Spiriva] 18 mcg INHALATION QDAY 10/03/19 10/03/19 Unknown History cloNIDine [Catapres] 0.2 mg PO TID 10/03/19 10/03/19 Unknown History hydrOXYzine HCL [Atarax] 10 mg PO BID PRN 10/03/19 10/03/19 Unknown History Dutasteride 0.5 mg PO DAILY 10/04/19 10/04/19 Unknown History Mupirocin [Bactroban 2% OINT] 1 applic NS BID #1 tube 10/11/19 Unknown Rx Active Medications: Generic Name Dose Route Start Last Admin Trade Name Freq PRN Reason Stop Dose Admin Acetaminophen/Hydrocodone Bitart 2 each 10/03/19 16:34 10/11/19 10:08 Temple 5/325 PO 2 each Q6H PRN Administration Pain, Moderate (4-6) Al Hydrox/Mg Hydrox/Simethicone 30 ml 10/04/19 13:19 10/04/19 13:38 Alum-Mag Hydrox-Simeth 488-850-17bu/5ml PO 30 ml Q4H PRN Administration Indigestion Alprazolam 0.5 mg 10/02/19 16:29 10/10/19 21:15 Xanax PO 0.5 mg Q8H PRN Administration Anxiety Aspirin 81 mg 10/06/19 10:00 10/11/19 10:03 Halfprin Ec PO Not Given QDAY MITZY Budesonide 0.5 mg 10/03/19 20:00 10/11/19 08:14 Pulmicort IH Not Given Q12HRT MITZY Cetirizine HCl 10 mg 10/04/19 10:00 10/11/19 10:09 Cetirizine PO 10 mg DAILY MITZY Administration Clonidine HCl 0.2 mg 10/03/19 20:00 10/11/19 08:00 Catapres PO 0.2 mg TID MITZY Administration Fluticasone Propionate 50 mcg 10/04/19 10:00 10/11/19 10:06 Flonase NS 50 mcg QDAY MITZY Administration Heparin Sodium (Porcine) 5,000 unit 10/09/19 22:00 10/11/19 10:11 Heparin SUB-Q 5,000 unit Q12HR MITZY Administration Hydrophilic Ointment 1 applic 10/07/19 19:39 10/11/19 10:07 Vaseline Lip Therapy TP 1 applic DIRECT PRN Administration Dry Lips Hydroxyzine HCl 10 mg 10/07/19 17:13 10/11/19 10:10 Atarax PO 10 mg TID PRN Administration Itching Sodium Chloride 100 mls @ 999 mls/hr 10/07/19 09:19 Nacl 0.9% IV TILA PRN Hypotension Lorazepam 1 mg 10/03/19 15:49 10/10/19 04:23 Ativan PO 1 mg Q12HR PRN Administration Anxiety Miscellaneous Medication 0.5 mg 10/04/19 22:00 10/11/19 10:11 Dutasteride [Dutasteride] PO 0.5 mg QDAY MITZY Administration Multivit/Ca Carb/B Cmplx/FA/Prenat 1 cap 10/04/19 10:00 10/11/19 10:09 Renal Caps PO 1 cap QDAY MITZY Administration Mupirocin 1 applic 10/07/19 22:00 10/11/19 10:07 Bactroban 2% NS 1 applic BID MITZY Administration Nicotine 21 mg 10/03/19 19:00 10/11/19 10:09 Habitrol TD 21 mg DAILY MITZY Administration Ondansetron HCl 8 mg 10/03/19 19:25 10/04/19 04:02 Zofran Odt PO 8 mg Q6H PRN Administration Nausea And Vomiting Pantoprazole Sodium 20 mg 10/04/19 10:00 10/11/19 10:11 Protonix PO 20 mg QDAY MITZY Administration Pentoxifylline 400 mg 10/03/19 22:00 10/11/19 10:09 Trental PO 400 mg BID MITZY Administration Tiotropium Hollister 1 puff 10/04/19 10:00 10/11/19 09:04 Spiriva IH 1 puff QDAY MITZY Administration
== END 2019-10-11 14:50 | disposition home health service (06) | DRG 682 ==
LOC: ED 12:05 → 3A 16:52 → OBSVTOIN 10-03 14:00
PROVIDERS: ADMIT Internal Medicine; ATTEND Internal Medicine
PROC: 30233N1 Transfusion of Nonautologous Red Blood Cells into Peripheral Vein, Percutaneous Approach (ICD-10-PCS; principal; 2019-10-03)
PROC: 5A1D70Z Performance of Urinary Filtration, Intermittent, Less than 6 Hours Per Day (ICD-10-PCS; 2019-10-05)
PROC: 5A1D70Z Performance of Urinary Filtration, Intermittent, Less than 6 Hours Per Day (ICD-10-PCS; 2019-10-07)
PROC: 5A1D70Z Performance of Urinary Filtration, Intermittent, Less than 6 Hours Per Day (ICD-10-PCS; 2019-10-10)
DX: N17.9 Acute kidney failure, unspecified (principal); E43 Unspecified severe protein-calorie malnutrition; L97.929 Non-pressure chronic ulcer of unspecified part of left lower leg with unspecified severity; D62 Acute posthemorrhagic anemia; E87.2 Acidosis; I12.0 Hypertensive chronic kidney disease with stage 5 chronic kidney disease or end stage renal disease; J96.11 Chronic respiratory failure with hypoxia; Z68.1 Body mass index [BMI] 19.9 or less, adult; I73.9 Peripheral vascular disease, unspecified; F41.9 Anxiety disorder, unspecified; J44.9 Chronic obstructive pulmonary disease, unspecified; E87.5 Hyperkalemia; N18.6 End stage renal disease; T14.8XXA Other injury of unspecified body region, initial encounter; X58.XXXA Exposure to other specified factors, initial encounter; Y93.89 Activity, other specified; Y92.89 Other specified places as the place of occurrence of the external cause; Z87.891 Personal history of nicotine dependence; Y99.8 Other external cause status
CPT/HCPCS: 36415; 71046; 80048; 80074; 82040; 84134; 85014; 85018; 85025; 85027; 85610; 85730; 86850; 86870; 86900; 86901; 86922; 87040; 87116; 94640; G0378; A4649; A9270-GY; J1644; J2270; J7030; J7040; P9016; Q0162

== ENCOUNTER 2019-11-05 15:59 | Outpatient (CLI) | payer MEDICARE ==
[2019-11-05 16:32] LABS: Albumin 3.6 g/dL (3.9-5); Calcium 10.1 mg/dL (8.4-10.2)
== END 2019-11-05 16:00 | disposition home or self-care (01) ==
LOC: LAB 15:59
PROVIDERS: ATTEND Student in an Organized Health Care Education/Training Program
DX: N18.6 End stage renal disease (principal); R53.1 Weakness; E87.2 Acidosis; N13.9 Obstructive and reflux uropathy, unspecified; N17.9 Acute kidney failure, unspecified
CPT/HCPCS: 36415; 80048; 82040; 84100